=== PATIENT | female | born 1940 | race Caucasian/White ===

== ENCOUNTER 2019-02-12 13:51 | Inpatient (IN) | payer OTHER, MEDICARE ==
--- NOTE | 2019-02-12 13:58 | PDOC ---
History of Present Illness - General Chief Complaint: Shortness of Breath Stated Complaint: sob Time Seen by Provider: 02/12/19 13:56 - History of Present Illness Initial Comments: 02/12/19 14:50 The patient is a 78 year old female with a history of COPD on 3L nc, CVA, HTN who presents for evaluation of shortness of breath. The patient is accompanied by her who assists in providing the history. They note a 3 week history of progressively worsening shortness of breath that has been managed on an outpatient basis by the patient's primary care provider Dr. Grider. The patient was being seen by Dr. Grider today and noted to be hypoxic and was referred to the ED for admission for COPD exacerbation. The patient reports a non-productive cough throughout this time period in addition to her shortness of breath. They otherwise deny fevers, chills, chest pain, nausea, vomiting, abdominal pain, or changes with urination or bowel movements. Past History - Past Medical History Allergies/Adverse Reactions: Allergies Allergy/AdvReac Type Severity Reaction Status Date / Time No Known Allergies Allergy Verified 02/12/19 13:52 Home Medications: Ambulatory Orders Albuterol 0.083% Nebulizer Nan [Ventolin 0.083% Nebulizer Soln -] 1 amp NEB Q4H PRN #0 amp 12/28/15 Aspirin Coated [Ecotrin -] 81 mg PO DAILY #0 tablet.ec 12/28/15 Dorzolamide HCl [Trusopt 2% -] 1 drop OU BID #0 drops 12/28/15 Latanoprost 0.005% Eye Drops [Xalatan 0.005% Eye Drops -] 1 drop OU HS #0 drops 12/28/15 Atorvastatin Ca [Lipitor] 80 mg PO HS 02/12/19 Jamir/D3/Mag11/Zinc/Transport Truck Driver/Fortino/Bor [Caltrate 600+D Plus Tablet] 1 each PO DAILY Furosemide [Lasix] 40 mg PO BID 02/12/19 L.acidoph,Paracasei, B.lactis [Probiotic] 1 each PO DAILY 02/12/19 Magnesium 250 mg PO DAILY 02/12/19 Potassium Chloride 20 meq PO DAILY 02/12/19 Anemia: No Asthma: No Cancer: No Cardiac Disorders: No CVA: Yes COPD: Yes (3l nc) CHF: No Dementia: Yes Diabetes: No GI Disorders: No Disorders: No HTN: Yes Hypercholesterolemia: No Liver Disease: No Seizures: No Thyroid Disease: No - Suicide/Smoking/Psychosocial Hx Smoking History: Former smoker Have you smoked in the past 12 months: No Number of Cigarettes Smoked Daily: 30 Information on smoking cessation initiated: Yes 'Breaking Loose' booklet given: 12/21/15 Hx Alcohol Use: No Drug/Substance Use Hx: No Substance Use Type: None Review of Systems - Review of Systems Comments:: 02/12/19 14:53 Constitutional: No fevers, chills, fatigue, malaise HEENT: No Rhinorrhea, nasal congestion, visual changes Cardiovascular: No chest pain, syncope, palpitations, lightheadedness Respiratory: Cough, SOB. No Hemoptysis, Gastrointestinal: No Abdominal pain, Nausea, Vomiting, Constipation, Diarrhea, Melena Genitourinary: No Dysuria, Frequency, Urgency, Hesitancy, Hematuria, Flank pain Musculoskeletal: No Myalgia, arthralgia Skin: No rashes, itching, bruising, pallor Neurologic: No Headache, Dizziness, Numbness, Weakness, or Tingling Psychiatric: No Hallucinations. No SI or HI *Physical Exam - Vital Signs Last Vital Signs Temp Pulse Resp BP Pulse Ox 0/0 L 02/12/19 13:51 - Physical Exam Comments: 02/12/19 14:53 General Appearance: Nourished. No Apparent Distress HEENT: No Pharyngeal Erythema, Tonsillar Exudate, Tonsillar Erythema Neck: No Cervical Lymphadenopathy Respiratory/Chest: Rales noted at the lung bases with scant wheezing and poor air movement. No Crackles, Rhonchi, Cardiovascular: Regular Rhythm, Regular Rate. No Murmur, Gallops, Rubs Gastrointestinal/Abdominal: Normal Bowel Sounds, Soft. No Guarding, Rebound, Tenderness Musculoskeletal: No CVA Tenderness Extremity: Normal Capillary Refill Integumentary: Normal Color, Dry, Warm Neurologic: Fully Oriented, Alert, Normal Mood/Affect, Normal Response, ED Treatment Course - LABORATORY CBC & Chemistry Diagram: 02/12/19 14:21 02/12/19 14:21 Medical Decision Making - Medical Decision Making 02/12/19 15:04 The patient is a 78 year old female with a history of COPD on 3L nc, CVA, HTN who presents for evaluation of shortness of breath. Differential includes but is not limited to: COPD exacerbation, Pneumonia, ACS, CHF, Infectious, Metabolic Derangement. Given the patient's history and physical exam, we will obtain a cbc, cmp, troponin, bnp, chest plain film, blood cultures, ekg to evaluate further. We will treat with duonebs, solumedrol, ceftriaxone, and azithromycin. We will continue to monitor and reassess while here in the ED. The patient will likely require admission for further monitoring and management. 02/12/19 18:44 CBC is unremarkable. CMP is unremarkable. Troponin is elevated to 0.09. BNP is elevated to 5000s. Chest plain film demonstrates a possible right lower lobe infiltrate as read by our radiologist. The patient will require admission for further management. We discussed the case with the admitting team who accepted the patient for admission. *DC/Admit/Observation/Transfer Diagnosis at time of Disposition: COPD exacerbation - Discharge Dispostion Condition at time of disposition: Stable Decision to Admit order: Yes - Referrals - Patient Instructions - Post Discharge Activity
[2019-02-12] MEDS ORDERED: AZITHROMYCIN IVPB 500 MG in DEXTROSE 5%-WATER - 250 ML IVPB ONE (14:19)
[2019-02-12] MEDS ORDERED: CEFTRIAXONE 1 GM in DEXTROSE 5%-WATER - 100 ML IVPB ONE (14:19)
[2019-02-12] MEDS ORDERED: ALBUTEROL SO4 2.5/IPRATROPIUM 0.5 INH SOL 3 ML VIAL.NEB. NEB ONE ×6 (14:19→15:24)
[2019-02-12] MEDS ORDERED: methylPREDNISolone NA SUCC 125 MG/2 ML VIAL IVPUSH ONE (14:19)
[2019-02-12] MEDS ORDERED: methylPREDNISolone NA SUCC 125 MG/2 ML VIAL ONE (14:23)
[2019-02-12] MEDS ORDERED: cefTRIAXone SODIUM 1 GM VIAL ONE (14:29)
[2019-02-12] MEDS ORDERED: AZITHROMYCIN 500 MG VIAL IVPB ONE (14:29)
[2019-02-12 14:38] LABS: HEMOGLOBIN 15.8 GM/dl (10.7-15.3); LYMPH % 24.1 % (8-40); MCH 32.3 pg (25.7-33.7)
[2019-02-12 14:42] LABS: BASO % 0.2 % (0-2.0); EOS % 1.3 % (0-4.5); HEMATOCRIT 48.6 % (32.4-45.2); MCHC 32.5 g/dl (32.0-36.0); MEAN CELL VOLUME 99.5 fl (80-96); MEAN PLT VOLUME 8.2 fl (7.5-11.1); MONO % 5.4 % (3.8-10.2); PLATELET COUNT 244 K/MM3 (134-434); RBC 4.88 M/mm3 (3.60-5.2); RDW 13.8 % (11.6-15.6); WHITE BLOOD COUNT 8.3 K/mm3 (4.0-10.8)
[2019-02-12 14:49] LABS: ALBUMIN 3.4 g/dl (3.4-5.0); BILIRUBIN,TOTAL 0.9 mg/dl (0.2-1); CALCIUM 9.4 mg/dl (8.5-10); CREATININE 1.2 mg/dl (0.55-1.3); POTASSIUM 4.5 mmol/L (3.5-5.1); TOT PROT 6.8 g/dl (6.4-8.2)
--- NOTE | 2019-02-12 15:42 | EKG ---
Test Reason : Blood Pressure : / mmHG Vent. Rate : 098 BPM Atrial Rate : 098 BPM P-R Int : 152 ms QRS Dur : 086 ms QT Int : 362 ms P-R-T Axes : 062 103 068 degrees QTc Int : 462 ms NORMAL SINUS RHYTHM POSSIBLE RIGHT VENTRICULAR HYPERTROPHY POSSIBLE INFERIOR INFARCT , AGE UNDETERMINED ABNORMAL ECG NO PREVIOUS ECGS AVAILABLE Confirmed by SKYLA ALEGRIA MD ([id number]) on 02/12/2019 3:42:18 PM Referred By: BISI LOYOLA Confirmed By:SKYLA ALEGRIA MD
[2019-02-12] MEDS ORDERED: SODIUM CHLORIDE 500 ML IV STA (16:02)
--- NOTE | 2019-02-12 16:23 | PDOC ---
Attending Attestation - Resident Resident Name: Len Santos - ED Attending Attestation I have performed the following: I have examined & evaluated the patient, The case was reviewed & discussed with the resident, I agree w/resident's findings & plan, Exceptions are as noted - HPI HPI: 02/12/19 16:18 78-year-old female with severe COPD, nebulizer and home oxygen dependent, with increased shortness of breath and cough. Sent for evaluation by PMD. O2 saturation is baseline is in the high 80s. No fever/chills, productive cough, or chest pain - Physicial Exam PE: 02/12/19 16:20 Oriented 3, alert, mild respiratory distress Afebrile. Oxygen saturation in the low 80s, improving to high 80s with oxygen administration. Decreased breath sounds, hyperresonance bilaterally. Wheezing at the bases. Mildly tachycardic, systolic ejection murmur, no JVD or edema Chest x-ray with cardiomegaly and increased markings at the bases, no discrete infiltrate. EKG is unchanged 02/12/19 16:23 - Medical Decision Making 02/12/19 16:23 Assessment is acute exacerbation of COPD Plan: Oxygen, steroids, nebulizers, antibiotics, and observation. Admit to hospitalist as noted.
[2019-02-12 16:24] LABS: N-TERMINAL BNP 5016.4 pg/ml (5-450)
--- NOTE | 2019-02-12 16:44 | HP ---
CHIEF COMPLAINT: Shortness of breath PCP: Dr. Grider Cardiology: Dr. Noel HISTORY OF PRESENT ILLNESS: 78 year-old female with a PMH significant for diastolic heart failure, carotid artery disease s/p endarterectomy, peripheral arterial disease s/p fem pop bypass, and COPD. ER course was notable for: (1) SpO2 83% on 3L NC (2) CXR: central congestive changes (3) Troponin 0.09 (4) UA >100 WBCs (5) Solumedrol 125 x 1; azithro x 1; ceftriaxone x 1; mag x 1; duoneb x 3 Recent Travel: No PAST MEDICAL HISTORY: Diastolic heart failure Carotid artery disease Peripheral arterial disease COPD PAST SURGICAL HISTORY: Carotid endarterectomy 2009 [facility] Fem-pop bypass Social History: Smoking: quit 4 years ago, smoked >50 years Alcohol: social Drugs: no Family History: Allergies No Known Allergies Allergy (Verified 02/12/19 13:52) HOME MEDICATIONS: Home Medications Medication Instructions Recorded Albuterol 0.083% Nebulizer Nan 1 amp NEB Q4H PRN #0 amp 12/28/15 [Ventolin 0.083% Nebulizer Soln -] Aspirin Coated [Ecotrin -] 81 mg PO DAILY #0 tablet.ec 12/28/15 Dorzolamide HCl [Trusopt 2% -] 1 drop OU BID #0 drops 12/28/15 Latanoprost 0.005% Eye Drops 1 drop OU HS #0 drops 12/28/15 [Xalatan 0.005% Eye Drops -] Atorvastatin Ca [Lipitor] 80 mg PO HS 02/12/19 Jamir/D3/Mag11/Zinc/Poolroom Table Attendant/Fortino/Bor 1 each PO DAILY 02/12/19 [Caltrate 600+D Plus Tablet] Furosemide [Lasix] 40 mg PO BID 02/12/19 L.acidoph,Paracasei, B.lactis 1 each PO DAILY 02/12/19 [Probiotic] Magnesium 250 mg PO DAILY 02/12/19 Potassium Chloride 20 meq PO DAILY 02/12/19 REVIEW OF SYSTEMS CONSTITUTIONAL: Absent: fever, chills, diaphoresis, generalized weakness, malaise, loss of appetite, weight change HEENT: Absent: rhinorrhea, nasal congestion, throat pain, throat swelling, difficulty swallowing, mouth swelling, ear pain, eye pain, visual changes CARDIOVASCULAR: Absent: chest pain, syncope, palpitations, irregular heart rate, lightheadedness , peripheral edema RESPIRATORY: +SOB, cough, COSTELLO Absent: orthopnea, wheezing, stridor, hemoptysis GASTROINTESTINAL: Absent: abdominal pain, abdominal distension, nausea, vomiting, diarrhea, constipation, melena, hematochezia GENITOURINARY: Absent: dysuria, frequency, urgency, hesitancy, hematuria, flank pain, genital pain MUSCULOSKELETAL: Absent: myalgia, arthralgia, joint swelling, back pain, neck pain SKIN: Absent: rash, itching, pallor HEMATOLOGIC/IMMUNOLOGIC: Absent: easy bleeding, easy bruising, lymphadenopathy, frequent infections ENDOCRINE: Absent: unexplained weight gain, unexplained weight loss, heat intolerance, cold intolerance NEUROLOGIC: Absent: headache, focal weakness or paresthesias, dizziness, unsteady gait, seizure, mental status changes, bladder or bowel incontinence PSYCHIATRIC: Absent: anxiety, depression, suicidal or homicidal ideation, hallucinations. PHYSICAL EXAMINATION Vital Signs - 24 hr 02/12/19 02/12/19 02/12/19 13:51 15:57 16:31 Temperature 97.9 F Pulse Rate 104 H Pulse Rate [ 100 H 97 H Apical] Respiratory 24 H 25 H 24 H Rate Blood Pressure 108/83 Blood Pressure 85/59 L 92/68 [Left Arm] O2 Sat by Pulse 83 L 84 L 85 L Oximetry (%) GENERAL: Awake, alert, and fully oriented, in no acute distress. HEAD: Normal with no signs of trauma. EYES: Pupils equal, round and reactive to light, extraocular movements intact, sclera anicteric, conjunctiva clear. No lid lag. EARS, NOSE, THROAT: Ears normal, nares patent, oropharynx clear without exudates. Moist mucous membranes. LUNGS: Bilateral rales 1/[address] up; on venti mask; able to speak in complete sentences, no accessory muscle use HEART: Regular rate and rhythm, S1 and S2 ABDOMEN: Soft, nontender, not distended UPPER EXTREMITIES: 2+ pulses, warm, well-perfused. No cyanosis. No clubbing. No peripheral edema. LOWER EXTREMITIES: 2+ pulses, warm, well-perfused. No calf tenderness. No peripheral edema, no calf tenderness. NEUROLOGICAL: Cranial nerves II-XII intact. Laboratory Results - last 24 hr 02/12/19 02/12/19 02/12/19 14:21 14:21 14:21 WBC 8.3 RBC 4.88 Hgb 15.8 H Hct 48.6 H MCV 99.5 H MCH 32.3 MCHC 32.5 RDW 13.8 Plt Count 244 MPV 8.2 Absolute Neuts (auto) 5.8 Neutrophils % 69.0 Lymphocytes % 24.1 Monocytes % 5.4 Eosinophils % 1.3 Basophils % 0.2 Sodium 138 Potassium 4.5 Chloride 103 Carbon Dioxide 27 Anion Gap 8 BUN 21.0 H Creatinine 1.2 Est GFR (CKD-EPI)AfAm 50.84 Est GFR (CKD-EPI)NonAf 43.86 Random Glucose 107 H Calcium 9.4 Total Bilirubin 0.9 AST 41 H ALT 30 Alkaline Phosphatase 77 Creatine Kinase Troponin I 0.09 H B-Natriuretic Peptide 5016.4 H Total Protein 6.8 Albumin 3.4 02/12/19 14:21 WBC RBC Hgb Hct MCV MCH MCHC RDW Plt Count MPV Absolute Neuts (auto) Neutrophils % Lymphocytes % Monocytes % Eosinophils % Basophils % Sodium Potassium Chloride Carbon Dioxide Anion Gap BUN Creatinine Est GFR (CKD-EPI)AfAm Est GFR (CKD-EPI)NonAf Random Glucose Calcium Total Bilirubin AST ALT Alkaline Phosphatase Creatine Kinase 34 Troponin I B-Natriuretic Peptide Total Protein Albumin ASSESSMENT/PLAN 78 year-old female with a PMH significant for diastolic heart failure, carotid artery disease s/p endarterectomy, peripheral arterial disease s/p fem pop bypass, and COPD. Admitted for hypoxic respiratory failure. Acute on chronic hypoxic respiratory failure secondary to diastolic HF exacerbation and COPD exacerbation --at home patient is on 3L continuous O2 and baseline SpO2 is high 80s; prior to coming to ED sats were in high 70s --now on venti mask 40% @ SpO2 88%; titrate FiO2 85-89% Acute on chronic diastolic heart failure --11/2015 Echo: mild cLVH; Grade I diastolic dysfunction; RV normal; trace to mild MR; mild TR; mild pHTN; mild to mod AI; mild PI --bilateral rales on exam, CXR shows congestive changes, BNP>5,000 --troponin 0.09-->0.08; third pending --ECG: no acute ischemic changes, Q waves --Lasix IVP 40mg daily --telemetry monitoring --cardiology consult COPD exacerbation --albuterol nebs PRN --continue Spiriva, Symbicort --solumedrol 40mg q8h --started on ceftriaxone and azithro, but prolonged QTc and already on Lexapro; d/c azithro; awaiting CT chest results, if signs of PNA will add doxy to cover atypicals UTI --symptomatic, urgency, dysuria --UA >100WBCs --ceftriaxone FEN Fluids: PO intake adequate Electrolytes: replete as indicated Nutrition: low sodium DVT prophylaxis: subq heparin Physical therapy Dispo: continues to require inpatient care. Full code. Visit type - Emergency Visit Emergency Visit: Yes ED Registration Date: 02/12/19 Care time: The patient presented to the Emergency Department on the above date and was hospitalized for further evaluation of their emergent condition. - New Patient This patient is new to me today: Yes Date on this admission: 02/13/19 - Critical Care Critical Care patient: No
[2019-02-12 18:35] VITALS: BMI 25.3
[2019-02-12] MEDS ORDERED: FUROSEMIDE 40 MG/4 ML INJECTABLE VIAL IVPUSH ONE (19:38)
[2019-02-12] MEDS ORDERED: ALBUTEROL SO4 0.083% IH SOL 2.5 MG/3 ML VIAL.NEB. NEB PRN (19:44)
[2019-02-12] MEDS ORDERED: ASPIRIN COATED 81 MG TABLET.EC PO ONE (19:51)
[2019-02-12] MEDS ORDERED: ATORVASTATIN CA 80 MG TABLET (FP) PO ONE (19:52)
[2019-02-12] MEDS: LATANOPROST 0.005% OPHTH SOLN 2.5ML BOTTLE OU SCH (23:46)
[2019-02-12] MEDS: DORZOLAMIDE 2% HCL OPHTHALMIC SOLUTION 10 ML BOTTLE OU SCH (23:47)
[2019-02-12] MEDS: BUDESONIDE/FORMETEROL FUMARATE 160/4.5 mcg INHALER IH SCH (23:48)
[2019-02-12] MEDS: HEPARIN NA (PORCINE) 5,000 UNITS/ML 1ML VIAL SQ SCH (23:49)
[2019-02-13] MEDS: HEPARIN NA (PORCINE) 5,000 UNITS/ML 1ML VIAL SQ SCH ×3 (06:08→22:13)
[2019-02-13 07:22] LABS: ALBUMIN 2.5 g/dl (3.4-5.0); BILIRUBIN,TOTAL 0.7 mg/dl (0.2-1); CALCIUM 7.7 mg/dl (8.5-10); CREATININE 1.1 mg/dl (0.55-1.3); MAGNESIUM 1.7 mg/dL (1.8-2.4); POTASSIUM 3.7 mmol/L (3.5-5.1); TOT PROT 5.2 g/dl (6.4-8.2)
[2019-02-13 07:27] LABS: EOS % 0.1 % (0-4.5); HEMATOCRIT 45.1 % (32.4-45.2); HEMOGLOBIN 14.7 GM/dl (10.7-15.3); LYMPH % 16.2 % (8-40); MCH 32.5 pg (25.7-33.7); MCHC 32.6 g/dl (32.0-36.0); MEAN CELL VOLUME 99.8 fl (80-96); MEAN PLT VOLUME 8.7 fl (7.5-11.1); MONO % 3.1 % (3.8-10.2); NEUT % 80.6 % (42.8-82.8); PLATELET COUNT 223 K/MM3 (134-434); RBC 4.52 M/mm3 (3.60-5.2)
[2019-02-13 07:36] LABS: ACTIVATED PTT 33.4 SECONDS (25.2-36.5)
[2019-02-13 07:40] LABS: INR 1.16 (0.82-1.09); PROTHROMBIN TIME (PATIENT) 12.9 SEC (10.2-13.0)
[2019-02-13] MEDS ORDERED: MAGNESIUM SULF 50% (8.12 MEQ/2 ML-1 GM VIAL) IVPB ONE (08:10)
[2019-02-13] MEDS ORDERED: MAGNESIUM SULFATE IN WATER 2 GM/50 ML IVPB IVPB ONE (09:00)
[2019-02-13] MEDS: ASPIRIN COATED 81 MG TABLET.EC PO SCH (09:41)
[2019-02-13] MEDS: ESCITALOPRAM OXALATE 10 MG TABLET (FP) PO SCH (09:41)
[2019-02-13] MEDS: FUROSEMIDE 40 MG/4 ML INJECTABLE VIAL IVPUSH SCH (09:41)
[2019-02-13] MEDS: NIFEdipine E.R 60 MG TABLET (UD) PO SCH ×2 (09:41→10:54)
[2019-02-13] MEDS: CEFTRIAXONE 1 G/50 ML PREMIX 50 ML IVPB SCH (09:42)
[2019-02-13] MEDS: BUDESONIDE/FORMETEROL FUMARATE 160/4.5 mcg INHALER IH SCH ×2 (09:48→22:00)
[2019-02-13] MEDS: DORZOLAMIDE 2% HCL OPHTHALMIC SOLUTION 10 ML BOTTLE OU SCH ×2 (09:48→22:01)
[2019-02-13] MEDS: TIOTROPIUM BROMIDE 2.5 MCG (SPIRIVA) RESPIMAT INHALER IH SCH (09:50)
[2019-02-13] MEDS ORDERED: PATIENT'S OWN MEDICATION (NON-FORMULARY) (Tiotropium Bromide [Spiriva] 18 MCG) IH SCH (10:00)
--- NOTE | 2019-02-13 10:19 | PN ---
Progress Note (short form) - Note Progress Note: PULMONARY CONSULTATION DICTATED 02/13/19 IMP ACUTE ON CHRONIC HYPOXEMIC RESPIRATORY FAILURE ADVANCED COPD WITH ACUTE EXACERBATION CHF HTN H/O CVA + TROPONIN PLAN IV STEROIDS INHALED BRONCHODILATORS ABX LASIX ECHO ZITHROMAX 25Omg PO TIW O2 TO MAINTAIN O2 SAT 90% 0R GREATER TREND TROPONIN CHEST CT DR CHATTERJEE Problem List - Problems (1) CHF (congestive heart failure) Code(s): I50.9 - HEART FAILURE, UNSPECIFIED (2) COPD exacerbation Code(s): J44.1 - CHRONIC OBSTRUCTIVE PULMONARY DISEASE W (ACUTE) EXACERBATION (3) Acute on chronic respiratory failure with hypoxemia Code(s): J96.21 - ACUTE AND CHRONIC RESPIRATORY FAILURE WITH HYPOXIA (4) Hypertension Code(s): I10 - ESSENTIAL (PRIMARY) HYPERTENSION Qualifiers: Hypertension type: essential hypertension (5) Shortness of breath Code(s): R06.02 - SHORTNESS OF BREATH (6) Troponin I above reference range Code(s): R74.8 - ABNORMAL LEVELS OF OTHER SERUM ENZYMES (7) Hypoxemia requiring supplemental oxygen Code(s): R09.02 - HYPOXEMIA; Z99.81 - DEPENDENCE ON SUPPLEMENTAL OXYGEN
--- NOTE | 2019-02-13 11:17 | CONS ---
DATE OF CONSULTATION: 02/13/2019 REFERRING PROVIDER: Olivia Anand NP The patient is a 78-year-old white female with a past medical history of advanced COPD, O2 dependent; history of CVA; hypertension; longstanding history of tobacco use, quit 3 years ago; admitted to [facility] with complaint of 3-week history of increasing shortness of breath and dyspnea on exertion. Patient has history of advanced COPD on home O2. For the past week, she said she started noting increasing shortness of breath and dyspnea on exertion. Denied any complaints of chest pain, palpitations. Has a cough which is nonproductive. Denied any fevers, chills, weight loss, or night sweats. Denies hemoptysis. She went to see Dr. Mccormick on the day of admission and was noted to have increasing hypoxia on O2. At which time, she was referred for admission. Patient denies any recent travel. 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 There is no history of occupational exposure to chemicals or fumes. She has a longstanding history of tobacco use, greater than 1 pack per day for many years, quit 3 years ago. There is no history of respiratory failure in the past requiring ventilatory support. PAST MEDICAL HISTORY: Again includes advanced COPD with chronic hypoxemic respiratory failure on 3 L nasal cannula, history of CVA, and hypertension. REVIEW OF SYSTEMS: Positive for cough. Positive shortness of breath. Positive dyspnea on exertion. Positive wheezing. No chest pain. No palpitations. No nausea. No vomiting. No hemoptysis. No abdominal pain. CURRENT MEDICATIONS: Include Symbicort 160/4.5, heparin, Lexapro, Spiriva, albuterol, Trusopt, ceftriaxone, Procardia, Lipitor, Lasix, Ecotrin, Latanoprost, and Xalatan. PHYSICAL EXAMINATION: General: The patient is an elderly white female, thin, awake, alert, in no acute distress. Vital Signs: She is afebrile. Blood pressure is 105/74. Respiratory rate is 18. O2 saturation is 88% on 2 L nasal cannula. HEENT: Normocephalic, atraumatic. Neck: Supple. Heart: Regular. S1, S2. Chest: Scattered bilateral wheezes. A few bibasilar crackles. Abdomen: Soft. Bowel sounds are positive. Extremities: No cyanosis or edema. LABORATORY DATA: WBC is 10, hemoglobin 14.7, hematocrit 45.1 with a platelet count of 223,000. BUN is 20, creatinine 1.1. Troponin 0.06. BNP is 5016. Chest x-ray: Cardiomegaly, congestion, some atelectasis and infiltrate at the right base, prominent right hilum. IMPRESSION: [id number] hypoxemic respiratory failure secondary to multiple factors: 1. Advanced chronic obstructive pulmonary disease with acute exacerbation. 2. Likely congestive heart failure. 3. Positive troponin. 4. Hypertension. 5. History of cerebrovascular accident. PLAN: IV steroids, inhaled bronchodilators, antibiotic therapy, Lasix, echo. Zithromax 250 mg t.i.w., anti-inflammatories, supplemental O2 to maintain saturations 90% or greater, trend troponin, and obtain chest CT. NANCY CHATTERJEE M.D. SALLY/[id number]
[2019-02-13] MEDS: methylPREDNISolone NA SUCC 40 MG/1 ML VIAL IVPUSH SCH ×2 (11:41→18:19)
[2019-02-13] MEDS: ACETAMINOPHEN 325 MG TABLET (FP) PO PRN (12:13)
--- NOTE | 2019-02-13 12:34 | PN ---
Physical Exam: SUBJECTIVE: Patient seen and examined sitting on edge of bed. Feels "lousy". Dysuria is better since banegas placed. Breathing is not improved. Refusing to go to CT scan, "too tired." OBJECTIVE: Vital Signs Period Temp Pulse Resp BP Sys/Frost Pulse Ox Last 24 Hr 97.4 F-98.5 F 95-107 18-25 85-146/47-83 83-91 GENERAL: The patient is awake, alert, and fully oriented, in no acute distress. Irritable. LUNGS: Bibasilar rales HEART: Regular rate and rhythm, S1, S2 ABDOMEN: Soft, nontender, nondistended EXTREMITIES: 2+ pulses, warm, well-perfused, no edema, no calf tenderness NEUROLOGICAL: Cranial nerves II through XII grossly intact. Normal speech, gait not observed. Laboratory Results - last 24 hr 02/12/19 02/12/19 02/12/19 14:21 14:21 14:21 WBC 8.3 RBC 4.88 Hgb 15.8 H Hct 48.6 H MCV 99.5 H MCH 32.3 MCHC 32.5 RDW 13.8 Plt Count 244 MPV 8.2 Absolute Neuts (auto) 5.8 Neutrophils % 69.0 Lymphocytes % 24.1 Monocytes % 5.4 Eosinophils % 1.3 Basophils % 0.2 PT with INR INR PTT (Actin FS) Sodium 138 Potassium 4.5 Chloride 103 Carbon Dioxide 27 Anion Gap 8 BUN 21.0 H Creatinine 1.2 Est GFR (CKD-EPI)AfAm 50.84 Est GFR (CKD-EPI)NonAf 43.86 Random Glucose 107 H Calcium 9.4 Magnesium Total Bilirubin 0.9 AST 41 H ALT 30 Alkaline Phosphatase 77 Creatine Kinase Troponin I 0.09 H B-Natriuretic Peptide 5016.4 H Total Protein 6.8 Albumin 3.4 TSH Urine Color Urine Appearance Urine pH Urine Protein Urine Glucose (UA) Urine Ketones Urine Blood Urine Nitrite Urine Bilirubin Urine Urobilinogen Ur Leukocyte Esterase Urine RBC Urine WBC Urine Bacteria 02/12/19 02/12/19 02/12/19 14:21 20:09 20:35 WBC RBC Hgb Hct MCV MCH MCHC RDW Plt Count MPV Absolute Neuts (auto) Neutrophils % Lymphocytes % Monocytes % Eosinophils % Basophils % PT with INR INR PTT (Actin FS) Sodium Potassium Chloride Carbon Dioxide Anion Gap BUN Creatinine Est GFR (CKD-EPI)AfAm Est GFR (CKD-EPI)NonAf Random Glucose Calcium Magnesium Total Bilirubin AST ALT Alkaline Phosphatase Creatine Kinase 34 Troponin I 0.08 H B-Natriuretic Peptide Total Protein Albumin TSH Urine Color Yellow Urine Appearance Cloudy Urine pH 6.0 Urine Protein 2+ H Urine Glucose (UA) Negative Urine Ketones Trace Urine Blood 1+ H Urine Nitrite Positive H Urine Bilirubin Negative Urine Urobilinogen 0.2 Ur Leukocyte Esterase 2+ Urine RBC 5-10 Urine WBC >100 Urine Bacteria Many 02/12/19 02/13/19 02/13/19 22:55 06:00 06:00 WBC RBC Hgb Hct MCV MCH MCHC RDW Plt Count MPV Absolute Neuts (auto) Neutrophils % Lymphocytes % Monocytes % Eosinophils % Basophils % PT with INR INR PTT (Actin FS) Sodium 141 Potassium 3.7 Chloride 109 H Carbon Dioxide 24 Anion Gap 8 BUN 20.0 H Creatinine 1.1 Est GFR (CKD-EPI)AfAm 56.48 Est GFR (CKD-EPI)NonAf 48.73 Random Glucose 104 Calcium 7.7 L Magnesium 1.7 L Total Bilirubin 0.7 AST 28 ALT 23 Alkaline Phosphatase 61 D Creatine Kinase Troponin I 0.06 H B-Natriuretic Peptide Total Protein 5.2 L Albumin 2.5 L TSH 0.67 Urine Color Cancelled Urine Appearance Cancelled Urine pH Cancelled Urine Protein Cancelled Urine Glucose (UA) Cancelled Urine Ketones Cancelled Urine Blood Cancelled Urine Nitrite Cancelled Urine Bilirubin Cancelled Urine Urobilinogen Cancelled Ur Leukocyte Esterase Cancelled Urine RBC Urine WBC Urine Bacteria 02/13/19 02/13/19 07:13 07:13 WBC 10.0 RBC 4.52 Hgb 14.7 Hct 45.1 MCV 99.8 H MCH 32.5 MCHC 32.6 RDW 14.0 Plt Count 223 MPV 8.7 Absolute Neuts (auto) 8.1 Neutrophils % 80.6 Lymphocytes % 16.2 Monocytes % 3.1 L Eosinophils % 0.1 Basophils % 0.0 PT with INR 12.9 INR 1.16 PTT (Actin FS) 33.4 Sodium Potassium Chloride Carbon Dioxide Anion Gap BUN Creatinine Est GFR (CKD-EPI)AfAm Est GFR (CKD-EPI)NonAf Random Glucose Calcium Magnesium Total Bilirubin AST ALT Alkaline Phosphatase Creatine Kinase Troponin I B-Natriuretic Peptide Total Protein Albumin TSH Urine Color Urine Appearance Urine pH Urine Protein Urine Glucose (UA) Urine Ketones Urine Blood Urine Nitrite Urine Bilirubin Urine Urobilinogen Ur Leukocyte Esterase Urine RBC Urine WBC Urine Bacteria Active Medications Generic Name Dose Route Start Last Admin Trade Name Roselia PRN Reason Stop Dose Admin Acetaminophen 650 mg 02/13/19 12:00 02/13/19 12:13 Tylenol - PO 650 mg Q6H PRN Administration PAIN LEVEL 1-5 Albuterol Sulfate 1 amp 02/12/19 19:44 Ventolin 0.083% Nebulizer Soln - NEB Q4H PRN SHORT OF BREATH/WHEEZING Aspirin 81 mg 02/13/19 10:00 02/13/19 09:41 Ecotrin - PO 81 mg DAILY [facility]ARA Administration Atorvastatin Calcium 80 mg 02/13/19 22:00 Lipitor - PO HS SARA Budesonide/Formoterol Fumarate 2 puff 02/12/19 22:00 02/13/19 09:48 Symbicort 160/4.5mcg - IH 2 puff BID [facility]ARA Administration Dorzolamide HCl 1 drop 02/12/19 22:00 02/13/19 09:48 Trusopt 2% OU 1 drop BID [facility] Administration Escitalopram Oxalate 10 mg 02/13/19 10:00 02/13/19 09:41 Lexapro - PO 10 mg DAILY [facility] Administration Furosemide 40 mg 02/13/19 10:00 02/13/19 09:41 Lasix Injection - IVPUSH 40 mg DAILY [facility] Administration Heparin Sodium (Porcine) 5,000 unit 02/12/19 22:00 02/13/19 06:08 Heparin - SQ 5,000 unit TID [facility] Administration Ceftriaxone Sodium 50 mls @ 100 mls/hr 02/13/19 10:00 02/13/19 09:42 Ceftriaxone 1 Gm-D5w Bag IVPB 100 mls/hr DAILY [facility] Administration Protocol Latanoprost 1 drop 02/12/19 22:00 02/12/19 23:46 Xalatan 0.005% Eye Drops - OU 1 drop HS [facility] Administration Methylprednisolone Sodium Succinate 40 mg 02/13/19 10:45 02/13/19 11:41 Solu-Medrol - IVPUSH 40 mg Q8H-IV [facility] Administration Nifedipine 60 mg 02/13/19 10:00 02/13/19 10:54 Procardia Xl - PO Not Given DAILY [facility] Tiotropium Mozelle 2 puff 02/13/19 10:00 02/13/19 09:50 Spiriva Respimat IH 2 puff DAILY [facility] Administration ASSESSMENT/PLAN: 78 year-old female with a PMH significant for TIA, diastolic heart failure, carotid artery disease s/p endarterectomy, peripheral arterial disease s/p fem pop bypass, and COPD. Admitted for hypoxic respiratory failure. Acute on chronic hypoxic respiratory failure secondary to diastolic HF exacerbation and COPD exacerbation --at home patient is on 3L continuous O2 and baseline SpO2 is high 80s; prior to coming to ED sats were in high 70s --titrate FiO2 85-89% Acute on chronic diastolic heart failure --11/2015 Echo: mild cLVH; Grade I diastolic dysfunction; RV normal; trace to mild MR; mild TR; mild pHTN; mild to mod AI; mild PI --bilateral rales on exam, CXR shows congestive changes, BNP>5,000 --Lasix IVP 40mg daily --telemetry monitoring --echo done pending dictation --cardiology consult Elevated troponins --troponin 0.09-->0.08-->0.06; no signs of ACS; likely secondary to HF demand --ECG: no acute ischemic changes, Q waves Atherosclerotic disease --h/o TIA, carotid artery disease, and peripheral artery disease --on ASA and high-dose statin COPD exacerbation --albuterol nebs PRN --continue Spiriva, Symbicort --solumedrol 40mg q8h --CT chest pending --continue ceftriaxone; azithro contraindicated due to QTc; consider doxy pending CT results UTI --symptomatic, urgency, dysuria --UA >100WBCs --ceftriaxone (day #2) FEN Fluids: PO intake adequate Electrolytes: replete as indicated Nutrition: low sodium DVT prophylaxis: subq heparin Physical therapy Dispo: continues to require inpatient care. Full code. Visit type - Emergency Visit Emergency Visit: Yes ED Registration Date: 02/12/19 Care time: The patient presented to the Emergency Department on the above date and was hospitalized for further evaluation of their emergent condition. - New Patient This patient is new to me today: No - Critical Care Critical Care patient: No
--- NOTE | 2019-02-13 13:49 | CON.CARD ---
Consult Consult Specialty:: Cardiology Referred by:: Medicine Reason for Consultation:: CHF - History of Present Illness Chief Complaint: CHF History of Present Illness: 78F h/o diastolic HF, carotid artery stenosis s/p CEA, PAD s/p fem-pop bypass, COPD p/w dypsnea. In ER was hypoxic to 83% on 3L of NC, with congestion on CXR. Was given steroids, abx, nebs, IV lasix. Feels better. Sees Dr. Noel for cardio. 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) Cardio/Vascular: Yes: HTN, Hyperlipdemia, Murmur, Other (PAD/Carotid Stenosis) Pulmonary: Yes: COPD Musculoskeletal: Yes: Chronic low back pain, Osteoarthritis Endocrine: Yes: Other (Thyroid Nodule) - Past Surgical History Past Surgical History: Yes: Carotid Endarterectomy (Left), Cataract Removal ( Left), Stent (legs), Tubal Ligation - Alcohol/Substance Use Hx Alcohol Use: No History of Substance Use: reports: None - Smoking History Smoking history: Former smoker Have you smoked in the past 12 months: No Aproximately how many cigarettes per day: 30 If you are a former smoker, when did you quit?: 4 YEARS AGO - Social History ADL: Independent 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 History of Recent Travel: No Home Medications - Allergies Allergies/Adverse Reactions: Allergies Allergy/AdvReac Type Severity Reaction Status Date / Time No Known Allergies Allergy Verified 02/12/19 13:52 - Home Medications Home Medications: Ambulatory Orders Albuterol 0.083% Nebulizer Nan [Ventolin 0.083% Nebulizer Soln -] 1 amp NEB Q4H PRN #0 amp 12/28/15 Aspirin Coated [Ecotrin -] 81 mg PO DAILY #0 tablet.ec 12/28/15 Dorzolamide HCl [Trusopt 2% -] 1 drop OU BID #0 drops 12/28/15 Latanoprost 0.005% Eye Drops [Xalatan 0.005% Eye Drops -] 1 drop OU HS #0 drops 12/28/15 Atorvastatin Ca [Lipitor] 80 mg PO HS 02/12/19 Jamir/D3/Mag11/Zinc/R[employer] Secretary [employer]apper/Fortino/Bor [Caltrate 600+D Plus Tablet] 1 each PO DAILY Furosemide [Lasix] 40 mg PO BID 02/12/19 L.acidoph,Paracasei, B.lactis [Probiotic] 1 each PO DAILY 02/12/19 Magnesium 250 mg PO DAILY 02/12/19 Potassium Chloride 20 meq PO DAILY 02/12/19 Family Disease History - Family Disease History Family Disease History: Heart Disease: Father ( at 74 of [place]), [place]: Brother ( Renal Cell), Sister (2 Sisters of lung cancer), Other: Mother (HTN,Thyroid) Review of Systems - Review of Systems Constitutional: reports: No Symptoms Eyes: reports: No Symptoms HENT: reports: No Symptoms Neck: reports: No Symptoms Cardiovascular: reports: No Symptoms Respiratory: reports: No Symptoms Gastrointestinal: reports: No Symptoms Genitourinary: reports: No Symptoms Musculoskeletal: reports: No Symptoms Integumentary: reports: No Symptoms Neurological: reports: No Symptoms Endocrine: reports: No Symptoms Hematology/Lymphatic: reports: No Symptoms Psychiatric: reports: No Symptoms Vital Signs: Vital Signs Temperature 98.5 F 02/13/19 10:00 Pulse Rate 101 H 02/13/19 10:00 Respiratory Rate 18 02/13/19 10:00 Blood Pressure 105/74 02/13/19 10:00 O2 Sat by Pulse Oximetry (%) 88 L 02/13/19 10:00 Constitutional: Yes: Well Nourished, No Distress, Calm Eyes: Yes: Conjunctiva Clear, EOM Intact HENT: Yes: Atraumatic, Normocephalic Neck: Yes: Supple, Trachea Midline Respiratory: Yes: Regular, Rales (bases orlin, poor effort) Gastrointestinal: Yes: Normal Bowel Sounds, Soft JVD: Yes Carotid Bruit: No PMI: Non-Displaced Heart Sounds: Yes: S1, S2 Musculoskeletal: No: Back Pain Extremities: No: Cold Edema: Yes Edema: LLE: Trace, RLE: Trace Peripheral Pulses WNL: Yes Peripheral Pulses: 2+ Left Doralis Pedis, 2+ Right Dorsalis Pedis Integumentary: No: Jaundice Neurological: Yes: Alert, Oriented Psychiatric: No: Agitated - Other Data Labs, Other Data: CBC, BMP 02/13/19 07:13 02/13/19 06:00 INR, PTT INR 1.16 (0.82-1.09) 02/13/19 07:13 Troponin, BNP 02/12/19 02/12/19 02/12/19 14:21 14:21 20:09 Troponin I 0.09 H 0.08 H B-Natriuretic Peptide 5016.4 H 02/13/19 06:00 Troponin I 0.06 H B-Natriuretic Peptide Troponin, BNP 02/12/19 02/12/19 02/12/19 14:21 14:21 20:09 Troponin I 0.09 H 0.08 H B-Natriuretic Peptide 5016.4 H 02/13/19 06:00 Troponin I 0.06 H B-Natriuretic Peptide Assessment/Plan EKG: sinus, nl intervals, no ischemic changes tele: sinus, sinus tachycardia CXR: congestive changes 78 year-old female with a PMH significant for diastolic heart failure, carotid artery disease s/p endarterectomy, peripheral arterial disease s/p fem pop bypass, and COPD. Admitted for hypoxic respiratory failure. acute on chronic diastolic HF, shortness of breath - CT chest pending - pulm following, SOB likely also component of COPD - improving on IV lasix, continue - monitor daily weights, Cr, lytes - echo pending elevated trop - flat trend, indeterminate range, EKG no ischemic changes - unlikely ACS, more likely demand in setting of HF COPD exac - manage per pulm UTI - manage per primary, on abx PAD, carotid stenosis - cont aspirin, statin HTN - cont home meds
--- NOTE | 2019-02-13 15:14 | ECHO ---
Name: CHAPO, ASHLI M Exam:Adult Echocardiogram Study Date: 02/13/2019 11:07 AM Age: 78 yrs Reason For Study: PULMONARY HTN MMode/2D Measurements & Calculations IVSd: 1.2 cm Ao root diam: 3.3 cm LVIDd: 3.6 cm LA dimension: 2.5 cm LVIDs: 2.4 cm LVPWd: 1.2 cm EDV(Teich): 54.5 ml LVOT diam: 2.0 cm ESV(Teich): 19.9 ml Doppler Measurements & Calculations TR max bo: 416.8 cm/sec PI end-d bo: 192.4 cm/sec TR max P.2 mmHg Procedure A complete two-dimensional transthoracic echocardiogram was performed (2D, M-mode, Doppler and color flow Doppler). Left Ventricle The left ventricular size, thickness and function are normal. The left ventricular ejection fraction is normal. Ejection Fraction = 60-65%. The left ventricular wall motion is normal. Right Ventricle The right ventricle is moderately dilated. The right ventricular systolic function is normal. Atria Normal left and right atrial size and function. Mitral Valve There is trace mitral regurgitation. Tricuspid Valve There is mild to moderate tricuspid regurgitation. There is severe pulmonary hypertension. Aortic Valve The aortic valve is trileaflet. No hemodynamically significant valvular aortic stenosis. Trace aortic regurgitation. Pulmonic Valve Mild pulmonic valvular regurgitation. Great Vessels The aortic root is normal size. Pericardium/Pleura There is no pericardial effusion. Interpretation Summary The left ventricular size, thickness and function are normal The right ventricle is moderately dilated. The right ventricular systolic function is normal. There is trace mitral regurgitation. There is mild to moderate tricuspid regurgitation. There is severe pulmonary hypertension. Trace aortic regurgitation. Mild pulmonic valvular regurgitation. MD Andrew Figueroa 02/13/2019 03:14 PM
[2019-02-13] MEDS: DOXYCYCLINE HYCLATE 100 MG CAPSULE PO SCH (18:19)
[2019-02-13] MEDS ORDERED: PT OWN MED DRAWER 7, Y5N ONE (21:43)
[2019-02-13] MEDS: ATORVASTATIN CA 80 MG TABLET (FP) PO SCH (22:00)
[2019-02-13] MEDS: LATANOPROST 0.005% OPHTH SOLN 2.5ML BOTTLE OU SCH (22:02)
[2019-02-14] MEDS: ACETAMINOPHEN 325 MG TABLET (FP) PO PRN ×2 (00:43→17:47)
[2019-02-14] MEDS: methylPREDNISolone NA SUCC 40 MG/1 ML VIAL IVPUSH SCH ×3 (01:16→17:43)
[2019-02-14] MEDS: HEPARIN NA (PORCINE) 5,000 UNITS/ML 1ML VIAL SQ SCH ×3 (05:42→21:15)
[2019-02-14] MEDS ORDERED: PT OWN MED DRAWER 7, Y5N ONE (09:15)
--- NOTE | 2019-02-14 09:29 | PN ---
Progress Note, Physician History of Present Illness: PULMONARY ALERT,LESS DYSPNEIC,STILL HYPOXIC . CHEST CT -MASSES,-CONGESTION,-EFFUSIONS - Current Medication List Current Medications: Active Medications Acetaminophen (Tylenol -) 650 mg PO Q6H PRN PRN Reason: PAIN LEVEL 1-5 Last Admin: 02/14/19 00:43 Dose: 650 mg Albuterol Sulfate (Ventolin 0.083% Nebulizer Soln -) 1 amp NEB Q4H PRN PRN Reason: SHORT OF BREATH/WHEEZING Aspirin (Ecotrin -) 81 mg PO DAILY [facility] Last Admin: 02/13/19 09:41 Dose: 81 mg Atorvastatin Calcium (Lipitor -) 80 mg PO HS [facility] Last Admin: 02/13/19 22:00 Dose: 80 mg Budesonide/Formoterol Fumarate (Symbicort 160/4.5mcg -) 2 puff IH BID [facility] Last Admin: 02/13/19 22:00 Dose: 2 puff Dorzolamide HCl (Trusopt 2%) 1 drop OU BID@1000,1800 [facility] Doxycycline Hyclate (Vibramycin -) 100 mg PO BID@1000,1800 [facility] Last Admin: 02/13/19 18:19 Dose: 100 mg Escitalopram Oxalate (Lexapro -) 10 mg PO DAILY [facility] Last Admin: 02/13/19 09:41 Dose: 10 mg Furosemide (Lasix Injection -) 40 mg IVPUSH DAILY [facility] Last Admin: 02/13/19 09:41 Dose: 40 mg Heparin Sodium (Porcine) (Heparin -) 5,000 unit SQ TID [facility] Last Admin: 02/14/19 05:42 Dose: 5,000 unit Ceftriaxone Sodium (Ceftriaxone 1 Gm-D5w Bag) 50 mls @ 100 mls/hr IVPB DAILY [facility]; Protocol Last Admin: 02/13/19 09:42 Dose: 100 mls/hr Latanoprost (Xalatan 0.005% Eye Drops -) 1 drop OU HS [facility] Last Admin: 02/13/19 22:02 Dose: 1 drop Methylprednisolone Sodium Succinate (Solu-Medrol -) 40 mg IVPUSH Q8H-IV [facility] Last Admin: 02/14/19 01:16 Dose: 40 mg Nifedipine (Procardia Xl -) 60 mg PO DAILY [facility] Last Admin: 02/13/19 10:54 Dose: Not Given Tiotropium [place] (Spiriva Respimat) 2 puff IH DAILY [facility] Last Admin: 02/13/19 09:50 Dose: 2 puff - Objective Vital Signs: Vital Signs Temperature 98.2 F 02/14/19 06:00 Pulse Rate 90 02/14/19 06:00 Respiratory Rate 18 02/14/19 06:00 Blood Pressure 139/82 02/14/19 06:00 O2 Sat by Pulse Oximetry (%) 98 02/14/19 08:00 Constitutional: Yes: Well Nourished, Calm Eyes: Yes: WNL HENT: Yes: WNL Neck: Yes: WNL Cardiovascular: Yes: Regular Rate and Rhythm, S1, S2 Respiratory: Yes: Diminished, Wheezes (LESS WHEEZES YO,FEW BASILAR CRACKLES) Gastrointestinal: Yes: Normal Bowel Sounds, Soft Extremities: Yes: WNL Edema: No Labs: CBC, BMP Problem List - Problems (1) CHF (congestive heart failure) Code(s): I50.9 - HEART FAILURE, UNSPECIFIED (2) COPD exacerbation Code(s): J44.1 - CHRONIC OBSTRUCTIVE PULMONARY DISEASE W (ACUTE) EXACERBATION (3) Acute on chronic respiratory failure with hypoxemia Code(s): J96.21 - ACUTE AND CHRONIC RESPIRATORY FAILURE WITH HYPOXIA (4) Hypertension Code(s): I10 - ESSENTIAL (PRIMARY) HYPERTENSION Qualifiers: Hypertension type: essential hypertension (5) Shortness of breath Code(s): R06.02 - SHORTNESS OF BREATH (6) Troponin I above reference range Code(s): R74.8 - ABNORMAL LEVELS OF OTHER SERUM ENZYMES (7) Hypoxemia requiring supplemental oxygen Code(s): R09.02 - HYPOXEMIA; Z99.81 - DEPENDENCE ON SUPPLEMENTAL OXYGEN Assessment/Plan IMP ACUTE ON CHRONIC HYPOXEMIC RESPIRATORY FAILURE ADVANCED COPD WITH ACUTE EXACERBATION CHF HTN H/O CVA + TROPONIN PLAN CONTINUE IV STEROIDS SAME DOSE INHALED BRONCHODILATORS ABX LASIX ZITHROMAX 25Omg PO TIW O2 TO MAINTAIN O2 SAT 90% 0R GREATER DR CHATTERJEE Problem List - Problems (1) CHF (congestive heart failure) Code(s): I50.9 - HEART FAILURE, UNSPECIFIED (2) COPD exacerbation Code(s): J44.1 - CHRONIC OBSTRUCTIVE PULMONARY DISEASE W (ACUTE) EXACERBATION (3) Acute on chronic respiratory failure with hypoxemia Code(s): J96.21 - ACUTE AND CHRONIC RESPIRATORY FAILURE WITH HYPOXIA (4) Hypertension Code(s): I10 - ESSENTIAL (PRIMARY) HYPERTENSION Qualifiers: Hypertension type: essential hypertension (5) Shortness of breath Code(s): R06.02 - SHORTNESS OF BREATH (6) Troponin I above reference range Code(s): R74.8 - ABNORMAL LEVELS OF OTHER SERUM ENZYMES (7) Hypoxemia requiring supplemental oxygen Code(s): R09.02 - HYPOXEMIA; Z99.81 - DEPENDENCE ON SUPPLEMENTAL OXYGEN
[2019-02-14] MEDS: NIFEdipine E.R 60 MG TABLET (UD) PO SCH (09:34)
[2019-02-14] MEDS: DOXYCYCLINE HYCLATE 100 MG CAPSULE PO SCH ×2 (09:34→17:50)
[2019-02-14] MEDS: FUROSEMIDE 40 MG/4 ML INJECTABLE VIAL IVPUSH SCH (09:34)
[2019-02-14] MEDS: CEFTRIAXONE 1 G/50 ML PREMIX 50 ML IVPB SCH (09:34)
[2019-02-14] MEDS: ESCITALOPRAM OXALATE 10 MG TABLET (FP) PO SCH (09:35)
[2019-02-14] MEDS: BUDESONIDE/FORMETEROL FUMARATE 160/4.5 mcg INHALER IH SCH ×2 (09:35→21:15)
[2019-02-14] MEDS: DORZOLAMIDE 2% HCL OPHTHALMIC SOLUTION 10 ML BOTTLE OU SCH (09:47)
[2019-02-14] MEDS: ASPIRIN COATED 81 MG TABLET.EC PO SCH (10:00)
[2019-02-14] MEDS: TIOTROPIUM BROMIDE 2.5 MCG (SPIRIVA) RESPIMAT INHALER IH SCH (10:00)
--- NOTE | 2019-02-14 11:51 | PN ---
Physical Exam: SUBJECTIVE: Patient seen and examined sitting on edge of bed. Still feels sensation of urgency with banegas in place. OBJECTIVE: Vital Signs Period Temp Pulse Resp BP Sys/Frost Pulse Ox Last 24 Hr 97.6 F-98.5 F 90-108 18-20 108-139/72-82 89-99 GENERAL: The patient is awake, alert, and fully oriented, in no acute distress. Irritable. LUNGS: Bibasilar rales HEART: Regular rate and rhythm, S1, S2 ABDOMEN: Soft, nontender, nondistended EXTREMITIES: 2+ pulses, warm, well-perfused, no edema, no calf tenderness NEUROLOGICAL: Cranial nerves II through XII grossly intact. Normal speech, gait not observed. Active Medications Generic Name Dose Route Start Last Admin Trade Name Freq PRN Reason Stop Dose Admin Acetaminophen 650 mg 02/13/19 12:00 02/14/19 00:43 Tylenol - PO 650 mg Q6H PRN Administration PAIN LEVEL 1-5 Albuterol Sulfate 1 amp 02/12/19 19:44 Ventolin 0.083% Nebulizer Soln - NEB Q4H PRN SHORT OF BREATH/WHEEZING Aspirin 81 mg 02/13/19 10:00 02/13/19 09:41 Ecotrin - PO 81 mg DAILY [facility] Administration Atorvastatin Calcium 80 mg 02/13/19 22:00 02/13/19 22:00 Lipitor - PO 80 mg HS [facility] Administration Budesonide/Formoterol Fumarate 2 puff 02/12/19 22:00 02/14/19 09:35 Symbicort 160/4.5mcg - IH 2 puff BID [facility] Administration Dorzolamide HCl 1 drop 02/14/19 10:00 02/14/19 09:47 Trusopt 2% OU 1 drop BID@1000,1800 [facility] Administration Doxycycline Hyclate 100 mg 02/13/19 18:00 02/14/19 09:34 Vibramycin - PO 100 mg BID@1000,1800 [facility] Administration Escitalopram Oxalate 10 mg 02/13/19 10:00 02/14/19 09:35 Lexapro - PO 10 mg DAILY [facility] Administration Furosemide 40 mg 02/13/19 10:00 02/14/19 09:34 Lasix Injection - IVPUSH 40 mg DAILY [facility] Administration Heparin Sodium (Porcine) 5,000 unit 02/12/19 22:00 02/14/19 05:42 Heparin - SQ 5,000 unit TID [facility] Administration Ceftriaxone Sodium 50 mls @ 100 mls/hr 02/13/19 10:00 02/14/19 09:34 Ceftriaxone 1 Gm-D5w Bag IVPB 100 mls/hr DAILY [facility] Administration Protocol Latanoprost 1 drop 02/12/19 22:00 02/13/19 22:02 Xalatan 0.005% Eye Drops - OU 1 drop HS [facility] Administration Methylprednisolone Sodium Succinate 40 mg 02/13/19 10:45 02/14/19 09:34 Solu-Medrol - IVPUSH 40 mg Q8H-IV [facility] Administration Nifedipine 60 mg 02/13/19 10:00 02/14/19 09:34 Procardia Xl - PO 60 mg DAILY [facility] Administration Tiotropium Melvin 2 puff 02/13/19 10:00 02/13/19 09:50 Spiriva Respimat IH 2 puff DAILY [facility] Administration ASSESSMENT/PLAN 78 year-old female with a PMH significant for TIA, diastolic heart failure, carotid artery disease s/p endarterectomy, peripheral arterial disease s/p fem pop bypass, and COPD. Admitted for hypoxic respiratory failure, CHF and COPD exacerbation. Now with CAP. Acute on chronic hypoxic respiratory failure secondary to diastolic HF exacerbation and COPD exacerbation --at home patient is on 3L continuous O2 and baseline SpO2 is high 80s; prior to coming to ED sats were in high 70s --titrate FiO2 85-89% Acute on chronic diastolic heart failure --02/13 Echo: LV normal, EF 60-65%; RV normal; trace MR; mild to moderate TR, severe pHTN; trace AI; mild PI --bilateral rales on exam, CXR shows congestive changes, BNP>5,000 --Lasix IVP 40mg daily --telemetry monitoringd --daily weights, strict I&Os --cardiology consult Elevated troponins --troponin 0.09-->0.08-->0.06; no signs of ACS; likely secondary to HF demand --ECG: no acute ischemic changes, Q waves Atherosclerotic disease --h/o TIA, carotid artery disease, and peripheral artery disease --on ASA and high-dose statin Community acquired pneumonia COPD exacerbation --02/13 CT chest: small left posterior basilar subpleural infiltrate --continue ceftriaxone; start doxy IV BID (azithro contraindicated due to prolonged QTc and on Lexapro) --albuterol nebs PRN --continue Spiriva, Symbicort --solumedrol 40mg q8h UTI --symptomatic: urgency, dysuria --UA >100WBCs --cultures neg x 2 --antibiotics as above Compression fractures, chronic --seen on CT at C7, T6, T11, L1 FEN Fluids: PO intake adequate Electrolytes: replete as indicated Nutrition: low sodium DVT prophylaxis: subq heparin Physical therapy Dispo: continues to require inpatient care. Full code. Visit type - Emergency Visit Emergency Visit: Yes ED Registration Date: 02/12/19 Care time: The patient presented to the Emergency Department on the above date and was hospitalized for further evaluation of their emergent condition. - New Patient This patient is new to me today: No - Critical Care Critical Care patient: No
--- NOTE | 2019-02-14 15:41 | EKG ---
Test Reason : Blood Pressure : / mmHG Vent. Rate : 092 BPM Atrial Rate : 092 BPM P-R Int : 160 ms QRS Dur : 092 ms QT Int : 384 ms P-R-T Axes : 064 093 058 degrees QTc Int : 474 ms NORMAL SINUS RHYTHM INCOMPLETE RIGHT BUNDLE BRANCH BLOCK POSSIBLE RIGHT VENTRICULAR HYPERTROPHY POSSIBLE INFERIOR INFARCT (CITED ON OR BEFORE 12-FEB-2019) NONSPECIFIC ST ABNORMALITY ABNORMAL ECG Confirmed by INES MATIAS MD ([id number] on 02/14/2019 3:41:[address] PM Referred By: DR OCHOA Confirmed By:INES MATIAS MD
--- NOTE | 2019-02-14 17:15 | PN ---
Progress Note (short form) - Note Progress Note: s: sob better, no cp palps dizzy o: Vital Signs Period Temp Pulse Resp BP Sys/Frost Pulse Ox Last 24 Hr 97.3 F-98.5 F 82-108 18-20 79-139/56-82 89-99 Constitutional: Yes: Well Nourished, No Distress, Calm Eyes: Yes: Conjunctiva Clear Neck: Yes: Supple, Trachea Midline Respiratory: Yes: Regular, left basilar crackles Gastrointestinal: Yes: Normal Bowel Sounds, Soft JVD: Yes Heart Sounds: Yes: S1, S2 Musculoskeletal: No: Back Pain Extremities: No: Cold Edema: no Peripheral Pulses: 2+ Left Doralis Pedis, 2+ Right Dorsalis Pedis Integumentary: No: Jaundice diaphoresis Neurological: Yes: Alert, Oriented Psychiatric: No: Agitated Current Medications Generic Name Dose Route Start Last Admin Trade Name Freq PRN Reason Stop Dose Admin Acetaminophen 650 mg 02/13/19 12:00 02/14/19 00:43 Tylenol - PO 650 mg Q6H PRN Administration PAIN LEVEL 1-5 Albuterol Sulfate 1 amp 02/12/19 19:44 02/14/19 15:28 Ventolin 0.083% Nebulizer Soln - NEB 1 amp Q4H PRN Administration SHORT OF BREATH/WHEEZING Aspirin 81 mg 02/13/19 10:00 02/14/19 10:00 Ecotrin - PO 81 mg DAILY [facility] Administration Atorvastatin Calcium 80 mg 02/13/19 22:00 02/13/19 22:00 Lipitor - PO 80 mg HS [facility] Administration Budesonide/Formoterol Fumarate 2 puff 02/12/19 22:00 02/14/19 09:35 Symbicort 160/4.5mcg - IH 2 puff BID [facility] Administration Dorzolamide HCl 1 drop 02/14/19 10:00 02/14/19 09:47 Trusopt 2% OU 1 drop BID@1000,1800 [facility] Administration Doxycycline Hyclate 100 mg 02/13/19 18:00 02/14/19 09:34 Vibramycin - PO 100 mg BID@1000,1800 [facility] Administration Escitalopram Oxalate 10 mg 02/13/19 10:00 02/14/19 09:35 Lexapro - PO 10 mg DAILY [facility] Administration Furosemide 40 mg 02/13/19 10:00 02/14/19 09:34 Lasix Injection - IVPUSH 40 mg DAILY [facility] Administration Heparin Sodium (Porcine) 5,000 unit 02/12/19 22:00 02/14/19 15:30 Heparin - SQ 5,000 unit TID [facility] Administration Ceftriaxone Sodium 50 mls @ 100 mls/hr 02/13/19 10:00 02/14/19 09:34 Ceftriaxone 1 Gm-D5w Bag IVPB 100 mls/hr DAILY [facility] Administration Protocol Latanoprost 1 drop 02/12/19 22:00 02/13/19 22:02 Xalatan 0.005% Eye Drops - OU 1 drop HS [facility] Administration Methylprednisolone Sodium Succinate 40 mg 02/13/19 10:45 02/14/19 09:34 Solu-Medrol - IVPUSH 40 mg Q8H-IV [facility] Administration Nifedipine 60 mg 02/13/19 10:00 02/14/19 09:34 Procardia Xl - PO 60 mg DAILY [facility] Administration Tiotropium [place] 2 puff 02/13/19 10:00 02/14/19 10:00 Spiriva Respimat IH 2 puff DAILY [facility] Administration CBC, BMP 02/13/19 07:13 02/13/19 06:00 Assessment/Plan EKG: sinus, nl intervals, no ischemic changes tele: sinus CXR: congestive changes echo 01/2019: nl lv, mod rve, nl rv fcn, mild-mod tr, mild pr, sev phtn 78 year-old female with a PMH significant for diastolic heart failure, carotid artery disease s/p endarterectomy, peripheral arterial disease s/p fem pop bypass, and COPD. Admitted for hypoxic respiratory failure. acute on chronic diastolic HF, shortness of breath - pulm following, SOB likely also component of COPD - improving on IV lasix, continue - monitor daily weights, Cr, lytes elevated trop - flat trend, indeterminate range, EKG no ischemic changes - unlikely ACS, more likely demand in setting of HF COPD exac - manage per pulm UTI - manage per primary, on abx PAD, carotid stenosis - cont aspirin, statin HTN - cont home meds pulm htn: -cont tx of chf, copd. Would repeat echo as outpt when acute issues resolve to see if RVSP improves.
[2019-02-14] MEDS: ATORVASTATIN CA 80 MG TABLET (FP) PO SCH (21:12)
[2019-02-14] MEDS: LATANOPROST 0.005% OPHTH SOLN 2.5ML BOTTLE OU SCH (21:16)
[2019-02-14] MEDS ORDERED: MELATONIN 5 MG TABLETS PO PRN (22:00)
[2019-02-15] MEDS: methylPREDNISolone NA SUCC 40 MG/1 ML VIAL IVPUSH SCH ×3 (01:19→17:04)
[2019-02-15] MEDS: HEPARIN NA (PORCINE) 5,000 UNITS/ML 1ML VIAL SQ SCH ×3 (06:37→21:29)
[2019-02-15] MEDS: DORZOLAMIDE 2% HCL OPHTHALMIC SOLUTION 10 ML BOTTLE OU SCH ×3 (08:21→17:04)
[2019-02-15] MEDS ORDERED: PT OWN MED DRAWER 7, Y5N ONE ×2 (09:39→21:27)
--- NOTE | 2019-02-15 09:41 | PN ---
Physical Exam: SUBJECTIVE: Patient seen and examined at bedside. Pt reports sob improving , denies cough, chest pain, palpitations, abdominal pain, N/V/D. pt states dysuria improved, no hematuria. OBJECTIVE: Vital Signs Period Temp Pulse Resp BP Sys/Frost Pulse Ox Last 24 Hr 97.3 F-98.4 F 82-108 18-20 79-125/56-87 87-98 GENERAL: The patient is awake, alert, and fully oriented, in no acute distress. HEAD: Normal with no signs of trauma. EYES: PERRL, extraocular movements intact, sclera anicteric, conjunctiva clear. No ptosis. ENT: Ears normal, nares patent, oropharynx clear without exudates, moist mucous membranes. NECK: Trachea midline, full range of motion, supple. LUNGS: Breath sounds equal, no wheezes, positive crackles, no accessory muscle use. HEART: Regular rate and rhythm, S1, S2 without murmur, rub or gallop. ABDOMEN: Soft, nontender, non distended, normoactive bowel sounds, no guarding, no rebound, no hepatosplenomegaly, no masses. EXTREMITIES: 2+ pulses, warm, well-perfused, no edema. NEUROLOGICAL: Cranial nerves II through XII grossly intact. Normal speech, gait not observed. PSYCH: Normal mood, normal affect. SKIN: Warm, dry, normal turgor, no rashes or lesions noted - [place] Active Medications Generic Name Dose Route Start Last Admin Trade Name Freq PRN Reason Stop Dose Admin Acetaminophen 650 mg 02/13/19 12:00 02/14/19 17:47 Tylenol - PO 650 mg Q6H PRN Administration PAIN LEVEL 1-5 Albuterol Sulfate 1 amp 02/12/19 19:44 02/14/19 15:28 Ventolin 0.083% Nebulizer Soln - NEB 1 amp Q4H PRN Administration SHORT OF BREATH/WHEEZING Aspirin 81 mg 02/13/19 10:00 02/14/19 10:00 Ecotrin - PO 81 mg DAILY [facility] Administration Atorvastatin Calcium 80 mg 02/13/19 22:00 02/14/19 21:12 Lipitor - PO 80 mg HS [facility] Administration Budesonide/Formoterol Fumarate 2 puff 02/12/19 22:00 02/14/19 21:15 Symbicort 160/4.5mcg - IH 2 puff BID [facility] Administration Dorzolamide HCl 1 drop 02/14/19 10:00 02/15/19 08:21 Trusopt 2% OU Not Given BID@1000,1800 [facility] Doxycycline Hyclate 100 mg 02/13/19 18:00 02/14/19 17:50 Vibramycin - PO 100 mg BID@1000,1800 [facility] Administration Escitalopram Oxalate 10 mg 02/13/19 10:00 02/14/19 09:35 Lexapro - PO 10 mg DAILY [facility] Administration Furosemide 40 mg 02/13/19 10:00 02/14/19 09:34 Lasix Injection - IVPUSH 40 mg DAILY [facility] Administration Heparin Sodium (Porcine) 5,000 unit 02/12/19 22:00 02/15/19 06:37 Heparin - SQ 5,000 unit TID [facility] Administration Ceftriaxone Sodium 50 mls @ 100 mls/hr 02/13/19 10:00 02/14/19 09:34 Ceftriaxone 1 Gm-D5w Bag IVPB 100 mls/hr DAILY [facility] Administration Protocol Latanoprost 1 drop 02/12/19 22:00 02/14/19 21:16 Xalatan 0.005% Eye Drops - OU 1 drop HS [facility] Administration Methylprednisolone Sodium Succinate 40 mg 02/13/19 10:45 02/15/19 01:19 Solu-Medrol - IVPUSH 40 mg Q8H-IV [facility] Administration Nifedipine 60 mg 02/13/19 10:00 02/14/19 09:34 Procardia Xl - PO 60 mg DAILY [facility] Administration Tiotropium [place] 2 puff 02/13/19 10:00 02/14/19 10:00 Spiriva Respimat IH 2 puff DAILY [facility] Administration ASSESSMENT/PLAN: 78 year-old female with a PMH significant for TIA, diastolic heart failure, carotid artery disease s/p endarterectomy, peripheral arterial disease s/p fem pop bypass, and COPD. Admitted for hypoxic respiratory failure, CHF and COPD exacerbation. Now with CAP. *Acute on chronic hypoxic respiratory failure secondary to diastolic HF exacerbation/COPD exacerbation / CAP -O2 dependent at home 3L continuous O2 and baseline SpO2 is high 80s; prior to coming to ED sats were in high 70s -O2 sat 85-90's now -will cont on Steroid, Lasix and abx *Acute on chronic diastolic heart failure -02/13 Echo: LV normal, EF 60-65%; RV normal; trace MR; mild to moderate TR, severe pHTN; trace AI; mild PI - CXR shows congestive changes - BNP>5,000 -will cont on Lasix IVP 40mg daily -telemetry monitoring -daily weights, strict I&Os -cardiology following *Elevated troponins- denies cp -troponin 0.09-->0.08-->0.06; no signs of ACS; likely secondary to HF demand -ECG: no acute ischemic changes, Q waves *Atherosclerotic disease -h/o TIA, carotid artery disease, and peripheral artery disease -on ASA and high-dose statin *Community acquired pneumonia/COPD exacerbation -02/13 CT chest: small left posterior basilar subpleural infiltrate -continue ceftriaxone and doxy IV BID (azithro contraindicated due to prolonged QTc and on Lexapro) --solumedrol 40mg q8h -continue Spiriva, Symbicort,albuterol nebs PRN - pulmonary following - afebrile with mild leukocytosis *UTI -symptomatic: urgency, dysuria -UA >100WBCs -BC neg x 2 - urine culture < 10,000 -antibiotics as above - [place] in, refused to remove *Compression fractures, chronic -seen on CT at C7, T6, T11, L1 - pain control - PT eval FEN Fluids: PO intake adequate Electrolytes: replete as indicated Nutrition: low sodium DVT prophylaxis: subq heparin Physical therapy Dispo: continues to require inpatient care. Full code. Visit type - Emergency Visit Emergency Visit: Yes ED Registration Date: 02/12/19 Care time: The patient presented to the Emergency Department on the above date and was hospitalized for further evaluation of their emergent condition. - New Patient This patient is new to me today: Yes Date on this admission: 02/15/19 - Critical Care Critical Care patient: No
[2019-02-15] MEDS: ASPIRIN COATED 81 MG TABLET.EC PO SCH (09:46)
[2019-02-15] MEDS: NIFEdipine E.R 60 MG TABLET (UD) PO SCH (09:46)
[2019-02-15] MEDS: CEFTRIAXONE 1 G/50 ML PREMIX 50 ML IVPB SCH (09:46)
[2019-02-15] MEDS: DOXYCYCLINE HYCLATE 100 MG CAPSULE PO SCH ×2 (09:46→17:04)
[2019-02-15] MEDS: FUROSEMIDE 40 MG/4 ML INJECTABLE VIAL IVPUSH SCH (09:46)
[2019-02-15] MEDS: ESCITALOPRAM OXALATE 10 MG TABLET (FP) PO SCH (09:46)
[2019-02-15] MEDS: BUDESONIDE/FORMETEROL FUMARATE 160/4.5 mcg INHALER IH SCH ×2 (10:03→21:29)
[2019-02-15] MEDS: TIOTROPIUM BROMIDE 2.5 MCG (SPIRIVA) RESPIMAT INHALER IH SCH (10:03)
[2019-02-15 10:29] LABS: BASO % 0.5 % (0-2.0); HEMATOCRIT 47.6 % (32.4-45.2); HEMOGLOBIN 15.3 GM/dl (10.7-15.3); LYMPH % 12.9 % (8-40); MCHC 32.2 g/dl (32.0-36.0); MEAN CELL VOLUME 99.2 fl (80-96); MEAN PLT VOLUME 8.1 fl (7.5-11.1); MONO % 3.1 % (3.8-10.2); NEUT % 83.5 % (42.8-82.8); PLATELET COUNT 261 K/MM3 (134-434); RDW 13.9 % (11.6-15.6); WHITE BLOOD COUNT 12.6 K/mm3 (4.0-10.8)
[2019-02-15 10:53] LABS: CALCIUM 9.4 mg/dl (8.5-10); MAGNESIUM 1.9 mg/dL (1.8-2.4); POTASSIUM 4.3 mmol/L (3.5-5.1)
--- NOTE | 2019-02-15 11:21 | PN ---
Progress Note, Physician Chief Complaint: sitting in chair No distress - Current Medication List Current Medications: Active Medications Acetaminophen (Tylenol -) 650 mg PO Q6H PRN PRN Reason: PAIN LEVEL 1-5 Last Admin: 02/14/19 17:47 Dose: 650 mg Albuterol Sulfate (Ventolin 0.083% Nebulizer Soln -) 1 amp NEB Q4H PRN PRN Reason: SHORT OF BREATH/WHEEZING Last Admin: 02/14/19 15:28 Dose: 1 amp Aspirin (Ecotrin -) 81 mg PO DAILY [facility] Last Admin: 02/15/19 09:46 Dose: 81 mg Atorvastatin Calcium (Lipitor -) 80 mg PO HS [facility] Last Admin: 02/14/19 21:12 Dose: 80 mg Budesonide/Formoterol Fumarate (Symbicort 160/4.5mcg -) 2 puff IH BID [facility] Last Admin: 02/15/19 10:03 Dose: 2 puff Dorzolamide HCl (Trusopt 2%) 1 drop OU BID@1000,1800 [facility] Last Admin: 02/15/19 09:58 Dose: 1 drop Doxycycline Hyclate (Vibramycin -) 100 mg PO BID@1000,1800 [facility] Last Admin: 02/15/19 09:46 Dose: 100 mg Escitalopram Oxalate (Lexapro -) 10 mg PO DAILY [facility] Last Admin: 02/15/19 09:46 Dose: 10 mg Furosemide (Lasix Injection -) 40 mg IVPUSH DAILY [facility] Last Admin: 02/15/19 09:46 Dose: 40 mg Heparin Sodium (Porcine) (Heparin -) 5,000 unit SQ TID [facility] Last Admin: 02/15/19 06:37 Dose: 5,000 unit Ceftriaxone Sodium (Ceftriaxone 1 Gm-D5w Bag) 50 mls @ 100 mls/hr IVPB DAILY [facility]; Protocol Last Admin: 02/15/19 09:46 Dose: 100 mls/hr Latanoprost (Xalatan 0.005% Eye Drops -) 1 drop OU HS [facility] Last Admin: 02/14/19 21:16 Dose: 1 drop Methylprednisolone Sodium Succinate (Solu-Medrol -) 40 mg IVPUSH Q8H-IV [facility] Last Admin: 02/15/19 09:46 Dose: 40 mg Nifedipine (Procardia Xl -) 60 mg PO DAILY [facility] Last Admin: 02/15/19 09:46 Dose: 60 mg Tiotropium [place] (Spiriva Respimat) 2 puff IH DAILY [facility] Last Admin: 02/15/19 10:03 Dose: 2 puff - Objective Vital Signs: Vital Signs Temperature 97.7 F 02/15/19 06:27 Pulse Rate 95 H 02/15/19 06:27 Respiratory Rate 18 02/15/19 07:56 Blood Pressure 125/87 02/15/19 06:27 O2 Sat by Pulse Oximetry (%) 87 L 02/15/19 07:56 Constitutional: Yes: No Distress Cardiovascular: Yes: Regular Rate and Rhythm Respiratory: Yes: Other (bibasilar rales) Gastrointestinal: Yes: Soft Edema: No Neurological: Yes: Alert Labs: CBC, BMP 02/15/19 10:25 02/15/19 10:25 INR, PTT INR 1.16 (0.82-1.09) 02/13/19 07:13 Selected Entries 02/15/19 07:27 Weight 159 lb 4 oz Laboratory Tests 02/15/19 02/15/19 10:25 10:25 WBC 12.6 H Hgb 15.3 Plt Count 261 Sodium 139 Potassium 4.3 Creatinine 1.0 Magnesium 1.9 Laboratory Tests 02/12/19 02/12/19 02/12/19 14:21 14:21 20:09 Troponin I 0.09 H 0.08 H B-Natriuretic Peptide 5016.4 H 02/13/19 06:00 Troponin I 0.06 H B-Natriuretic Peptide - ....Imaging EKG: Image Reviewed Assessment/Plan Assessment/Plan EKG: sinus, nl intervals, no ischemic changes tele: sinus CXR: congestive changes echo 01/2019: nl lv, mod rve, nl rv fcn, mild-mod tr, mild pr, sev phtn 78 year-old female with a PMH significant for diastolic heart failure, carotid artery disease s/p endarterectomy, peripheral arterial disease s/p fem pop bypass, and COPD. Admitted for hypoxic respiratory failure. Acute on chronic diastolic HF: - pulm following, SOB likely also component of COPD - improving on IV lasix, continue, weight is down from admission. - monitor daily weights, Cr, lytes Elevated trop: - flat trend, indeterminate range, EKG no ischemic changes - unlikely ACS, more likely demand in setting of HF COPD exac: - manage per pulm UTI - manage per primary, on abx PAD, carotid stenosis - cont aspirin, statin HTN - cont home meds Pulm htn: secondary to COPD, chronic diastolic CHF -cont tx of chf, copd. Would repeat echo as outpt when acute issues resolve to see if RVSP improves.
[2019-02-15] MEDS: ATORVASTATIN CA 80 MG TABLET (FP) PO SCH (21:29)
[2019-02-15] MEDS: LATANOPROST 0.005% OPHTH SOLN 2.5ML BOTTLE OU SCH (21:30)
[2019-02-15] MEDS: ACETAMINOPHEN 325 MG TABLET (FP) PO PRN (22:00)
[2019-02-15] MEDS: MELATONIN 5 MG TABLETS PO PRN (22:40)
[2019-02-16] MEDS: methylPREDNISolone NA SUCC 40 MG/1 ML VIAL IVPUSH SCH ×2 (01:11→09:59)
[2019-02-16] MEDS: HEPARIN NA (PORCINE) 5,000 UNITS/ML 1ML VIAL SQ SCH ×3 (07:23→21:18)
[2019-02-16] MEDS: FUROSEMIDE 40 MG/4 ML INJECTABLE VIAL IVPUSH SCH (09:59)
[2019-02-16] MEDS: NIFEdipine E.R 60 MG TABLET (UD) PO SCH (09:59)
[2019-02-16] MEDS: DOXYCYCLINE HYCLATE 100 MG CAPSULE PO SCH ×2 (09:59→17:33)
[2019-02-16] MEDS: TIOTROPIUM BROMIDE 2.5 MCG (SPIRIVA) RESPIMAT INHALER IH SCH (09:59)
[2019-02-16] MEDS: BUDESONIDE/FORMETEROL FUMARATE 160/4.5 mcg INHALER IH SCH ×2 (09:59→21:25)
[2019-02-16] MEDS: ESCITALOPRAM OXALATE 10 MG TABLET (FP) PO SCH (09:59)
[2019-02-16] MEDS: CEFTRIAXONE 1 G/50 ML PREMIX 50 ML IVPB SCH (09:59)
[2019-02-16] MEDS: ASPIRIN COATED 81 MG TABLET.EC PO SCH (09:59)
[2019-02-16] MEDS: DORZOLAMIDE 2% HCL OPHTHALMIC SOLUTION 10 ML BOTTLE OU SCH ×2 (09:59→17:33)
--- NOTE | 2019-02-16 10:09 | PN ---
Physical Exam: SUBJECTIVE: Patient seen and examined. Pt reports feeling better, intermittent dry cough, no other complains. OBJECTIVE: Vital Signs Period Temp Pulse Resp BP Sys/Frost Pulse Ox Last 24 Hr 97.3 F-98.0 F 96-106 17-20 105-129/67-91 88-98 GENERAL: The patient is awake, alert, and fully oriented, in no acute distress. HEAD: Normal with no signs of trauma. EYES: PERRL, extraocular movements intact, sclera anicteric, conjunctiva clear. No ptosis. ENT: Ears normal, nares patent, oropharynx clear without exudates, moist mucous membranes. NECK: Trachea midline, full range of motion, supple. LUNGS: BS diminished bilaterally,no wheezes, crackles noted, no accessory muscle use. HEART: Regular rate and rhythm, S1, S2 without murmur, rub or gallop. ABDOMEN: Soft, nontender, nondistended, normoactive bowel sounds, no guarding, no rebound, no hepatosplenomegaly, no masses. EXTREMITIES: 2+ pulses, warm, well-perfused, no edema. NEUROLOGICAL: Cranial nerves II through XII grossly intact. Normal speech, gait not observed. PSYCH: Normal mood, normal affect. SKIN: Warm, dry, normal turgor, no rashes or lesions noted Laboratory Results - last 24 hr 02/15/19 02/15/19 10:25 10:25 WBC 12.6 H RBC 4.80 Hgb 15.3 Hct 47.6 H MCV 99.2 H MCH 32.0 MCHC 32.2 RDW 13.9 Plt Count 261 MPV 8.1 Absolute Neuts (auto) 10.5 Neutrophils % 83.5 H Lymphocytes % 12.9 Monocytes % 3.1 L Eosinophils % 0.0 Basophils % 0.5 Sodium 139 Potassium 4.3 Chloride 102 Carbon Dioxide 26 Anion Gap 11 BUN 28.0 H Creatinine 1.0 Est GFR (CKD-EPI)AfAm 63.38 Est GFR (CKD-EPI)NonAf 54.68 Random Glucose 158 H Calcium 9.4 Magnesium 1.9 Active Medications Generic Name Dose Route Start Last Admin Trade Name Freq PRN Reason Stop Dose Admin Acetaminophen 650 mg 02/13/19 12:00 02/15/19 22:00 Tylenol - PO 650 mg Q6H PRN Administration PAIN LEVEL 1-5 Albuterol Sulfate 1 amp 02/12/19 19:44 02/14/19 15:28 Ventolin 0.083% Nebulizer Soln - NEB 1 amp Q4H PRN Administration SHORT OF BREATH/WHEEZING Aspirin 81 mg 02/13/19 10:00 02/16/19 09:59 Ecotrin - PO 81 mg DAILY [facility] Administration Atorvastatin Calcium 80 mg 02/13/19 22:00 02/15/19 21:29 Lipitor - PO 80 mg HS [facility] Administration Budesonide/Formoterol Fumarate 2 puff 02/12/19 22:00 02/16/19 09:59 Symbicort 160/4.5mcg - IH 2 puff BID [facility] Administration Dorzolamide HCl 1 drop 02/14/19 10:00 02/16/19 09:59 Trusopt 2% OU 1 drop BID@1000,1800 [facility] Administration Doxycycline Hyclate 100 mg 02/13/19 18:00 02/16/19 09:59 Vibramycin - PO 100 mg BID@1000,1800 [facility] Administration Escitalopram Oxalate 10 mg 02/13/19 10:00 02/16/19 09:59 Lexapro - PO 10 mg DAILY [facility] Administration Furosemide 40 mg 02/13/19 10:00 02/16/19 09:59 Lasix Injection - IVPUSH 40 mg DAILY [facility] Administration Heparin Sodium (Porcine) 5,000 unit 02/12/19 22:00 02/16/19 07:23 Heparin - SQ 5,000 unit TID [facility] Administration Ceftriaxone Sodium 50 mls @ 100 mls/hr 02/13/19 10:00 02/16/19 09:59 Ceftriaxone 1 Gm-D5w Bag IVPB 100 mls/hr DAILY [facility] Administration Protocol Latanoprost 1 drop 02/12/19 22:00 02/15/19 21:30 Xalatan 0.005% Eye Drops - OU 1 drop HS [facility] Administration Melatonin 5 mg 02/15/19 22:26 02/15/19 22:40 Melatonin PO 5 mg HS PRN Administration INSOMNIA Methylprednisolone Sodium Succinate 40 mg 02/13/19 10:45 02/16/19 09:59 Solu-Medrol - IVPUSH 40 mg Q8H-IV [facility] Administration Nifedipine 60 mg 02/13/19 10:00 02/16/19 09:59 Procardia Xl - PO 60 mg DAILY [facility] Administration Tiotropium [place] 2 puff 02/13/19 10:00 02/16/19 09:59 Spiriva Respimat IH 2 puff DAILY [facility] Administration ASSESSMENT/PLAN: 78 year-old female with a PMH significant for TIA, diastolic heart failure, carotid artery disease s/p endarterectomy, peripheral arterial disease s/p fem pop bypass, and COPD. Admitted for hypoxic respiratory failure, CHF and COPD. exacerbation. Now with CAP. *Acute on chronic hypoxic respiratory failure secondary to diastolic HF exacerbation/COPD exacerbation / CAP- improving -O2 dependent at home 3L continuous O2 and baseline SpO2 is high 80s -O2 sat 89-90's now -will cont on Steroid, Lasix and abx *Acute on chronic diastolic heart failure- improving -02/13 Echo: LV normal, EF 60-65%; RV normal; trace MR; mild to moderate TR, severe pHTN; trace AI; mild PI - CXR shows congestive changes - BNP>5,000 -will cont on Lasix IVP 40mg daily -telemetry monitoring -daily weights, strict I&Os -cardiology following *Elevated troponins- denies cp -troponin 0.09-->0.08-->0.06; no signs of ACS; likely secondary to HF demand -ECG: no acute ischemic changes, Q waves *Atherosclerotic disease -h/o TIA, carotid artery disease, and peripheral artery disease -on ASA and high-dose statin *Community acquired pneumonia/COPD exacerbation -02/13 CT chest: small left posterior basilar subpleural infiltrate -continue ceftriaxone and doxy IV BID (azithro contraindicated due to prolonged QTc and on Lexapro) --solumedrol 40mg q8h -continue Spiriva, Symbicort,albuterol nebs PRN - pulmonary following - afebrile with mild leukocytosis *UTI -symptomatic: urgency, dysuria -UA >100WBCs -BC neg x 2 - urine culture < 10,000 -antibiotics as above - [place] in, refused to remove - [place] care *Compression fractures, chronic -seen on CT at C7, T6, T11, L1 - pain control - PT eval following FEN Fluids: PO intake adequate Electrolytes: replete as indicated Nutrition: low sodium DVT prophylaxis: subq heparin Dispo: continues to require inpatient care. Full code. Visit type - Emergency Visit Emergency Visit: Yes ED Registration Date: 02/12/19 Care time: The patient presented to the Emergency Department on the above date and was hospitalized for further evaluation of their emergent condition. - New Patient This patient is new to me today: No - Critical Care Critical Care patient: No
[2019-02-16 10:51] LABS: BASO % 0.5 % (0-2.0); HEMATOCRIT 50.7 % (32.4-45.2); HEMOGLOBIN 16.1 GM/dl (10.7-15.3); LYMPH % 13.1 % (8-40); MCH 31.5 pg (25.7-33.7); MCHC 31.8 g/dl (32.0-36.0); MEAN PLT VOLUME 8.9 fl (7.5-11.1); MONO % 3.1 % (3.8-10.2); NEUT % 83.3 % (42.8-82.8); PLATELET COUNT 277 K/MM3 (134-434); RBC 5.12 M/mm3 (3.60-5.2); RDW 14.3 % (11.6-15.6); WHITE BLOOD COUNT 11.9 K/mm3 (4.0-10.8)
[2019-02-16 12:51] LABS: CALCIUM 9.8 mg/dl (8.5-10); POTASSIUM 4.3 mmol/L (3.5-5.1)
--- NOTE | 2019-02-16 14:51 | PN ---
Progress Note (short form) - Note Progress Note: Feeling better. Feels tired. No CP. Cough and SOB is better. Intake & Output 02/13/19 02/14/19 02/15/19 02/16/19 23:59 23:59 23:59 23:59 Intake Total 1175 1130 250 Output Total 9053 593 5032 250 Balance -375 1030 -1350 -250 Weight 158 lb 7 oz 159 lb 4 oz 161 lb 6 oz Last Vital Signs Temp Pulse Resp BP Pulse Ox 97.9 F 100 H 20 101/40 L 89 L 02/16/19 13:48 02/16/19 13:48 02/16/19 13:48 02/16/19 13:48 02/16/19 08:02 Active Medications Acetaminophen (Tylenol -) 650 mg PO Q6H PRN PRN Reason: PAIN LEVEL 1-5 Last Admin: 02/15/19 22:00 Dose: 650 mg Albuterol Sulfate (Ventolin 0.083% Nebulizer Soln -) 1 amp NEB Q4H PRN PRN Reason: SHORT OF BREATH/WHEEZING Last Admin: 02/14/19 15:28 Dose: 1 amp Aspirin (Ecotrin -) 81 mg PO DAILY [facility] Last Admin: 02/16/19 09:59 Dose: 81 mg Atorvastatin Calcium (Lipitor -) 80 mg PO HS [facility] Last Admin: 02/15/19 21:29 Dose: 80 mg Budesonide/Formoterol Fumarate (Symbicort 160/4.5mcg -) 2 puff IH BID [facility] Last Admin: 02/16/19 09:59 Dose: 2 puff Dorzolamide HCl (Trusopt 2%) 1 drop OU BID@1000,1800 [facility] Last Admin: 02/16/19 09:59 Dose: 1 drop Doxycycline Hyclate (Vibramycin -) 100 mg PO BID@1000,1800 [facility] Last Admin: 02/16/19 09:59 Dose: 100 mg Escitalopram Oxalate (Lexapro -) 10 mg PO DAILY [facility] Last Admin: 02/16/19 09:59 Dose: 10 mg Furosemide (Lasix Injection -) 40 mg IVPUSH DAILY [facility] Last Admin: 02/16/19 09:59 Dose: 40 mg Heparin Sodium (Porcine) (Heparin -) 5,000 unit SQ TID [facility] Last Admin: 02/16/19 13:40 Dose: 5,000 unit Ceftriaxone Sodium (Ceftriaxone 1 Gm-D5w Bag) 50 mls @ 100 mls/hr IVPB DAILY [facility]; Protocol Last Admin: 02/16/19 09:59 Dose: 100 mls/hr Latanoprost (Xalatan 0.005% Eye Drops -) 1 drop OU HS [facility] Last Admin: 02/15/19 21:30 Dose: 1 drop Melatonin (Melatonin) 5 mg PO HS PRN PRN Reason: INSOMNIA Last Admin: 02/15/19 22:40 Dose: 5 mg Methylprednisolone Sodium Succinate (Solu-Medrol -) 40 mg IVPUSH Q8H-IV [facility] Last Admin: 02/16/19 09:59 Dose: 40 mg Nifedipine (Procardia Xl -) 60 mg PO DAILY [facility] Last Admin: 02/16/19 09:59 Dose: 60 mg Tiotropium [place] (Spiriva Respimat) 2 puff IH DAILY [facility] Last Admin: 02/16/19 09:59 Dose: 2 puff \ Constitutional: Yes: Well Nourished, Calm Eyes: Yes: WNL HENT: Yes: WNL Neck: Yes: WNL Cardiovascular: Yes: Regular Rate and Rhythm, S1, S2 Respiratory: Yes: Diminished, No Wheezes, few scattered rhonchi Gastrointestinal: Yes: Normal Bowel Sounds, Soft Extremities: Yes: WNL Edema: No Labs: Laboratory Results - last 24 hr 02/16/19 02/16/19 02/16/19 10:20 10:20 12:00 WBC 11.9 H RBC 5.12 Hgb 16.1 H Hct 50.7 H MCV 99.0 H MCH 31.5 MCHC 31.8 L RDW 14.3 Plt Count 277 MPV 8.9 Absolute Neuts (auto) 9.8 Neutrophils % 83.3 H Lymphocytes % 13.1 Monocytes % 3.1 L Eosinophils % 0.0 Basophils % 0.5 Sodium Cancelled 141 Potassium Cancelled 4.3 Chloride Cancelled 98 Carbon Dioxide Cancelled 29 Anion Gap Cancelled 14 BUN Cancelled 31.0 H Creatinine Cancelled 1.0 Est GFR (CKD-EPI)AfAm Cancelled 63.38 Est GFR (CKD-EPI)NonAf Cancelled 54.68 Random Glucose Cancelled 115 H Calcium Cancelled 9.8 Problem List - Problems (1) CHF (congestive heart failure) Code(s): I50.9 - HEART FAILURE, UNSPECIFIED (2) COPD exacerbation Code(s): J44.1 - CHRONIC OBSTRUCTIVE PULMONARY DISEASE W (ACUTE) EXACERBATION (3) Acute on chronic respiratory failure with hypoxemia Code(s): J96.21 - ACUTE AND CHRONIC RESPIRATORY FAILURE WITH HYPOXIA (4) Hypertension Code(s): I10 - ESSENTIAL (PRIMARY) HYPERTENSION Qualifiers: Hypertension type: essential hypertension (5) Shortness of breath Code(s): R06.02 - SHORTNESS OF BREATH (6) Troponin I above reference range Code(s): R74.8 - ABNORMAL LEVELS OF OTHER SERUM ENZYMES (7) Hypoxemia requiring supplemental oxygen Code(s): R09.02 - HYPOXEMIA; Z99.81 - DEPENDENCE ON SUPPLEMENTAL OXYGEN Assessment/Plan IMP ACUTE ON CHRONIC HYPOXEMIC RESPIRATORY FAILURE ADVANCED COPD WITH ACUTE EXACERBATION CHF HTN H/O CVA + TROPONIN PLAN CHANGE TO PREDNISONE INHALED BRONCHODILATORS ABX LASIX ZITHROMAX 25Omg PO TIW O2 TO MAINTAIN O2 SAT 90% 0R [facility] DR DELONG
[2019-02-16] MEDS: predniSONE 20 MG TABLET (UD) PO SCH (16:04)
[2019-02-16] MEDS: ATORVASTATIN CA 80 MG TABLET (FP) PO SCH (21:17)
[2019-02-16] MEDS: LATANOPROST 0.005% OPHTH SOLN 2.5ML BOTTLE OU SCH (21:25)
[2019-02-16] MEDS: MELATONIN 5 MG TABLETS PO PRN ×2 (21:25→21:59)
[2019-02-17] MEDS: HEPARIN NA (PORCINE) 5,000 UNITS/ML 1ML VIAL SQ SCH ×2 (06:07→14:29)
[2019-02-17 08:18] LABS: HEMATOCRIT 48.6 % (32.4-45.2); HEMOGLOBIN 15.7 GM/dl (10.7-15.3); MCH 32.2 pg (25.7-33.7); MCHC 32.2 g/dl (32.0-36.0); MEAN CELL VOLUME 99.9 fl (80-96); MEAN PLT VOLUME 8.9 fl (7.5-11.1); PLATELET COUNT 252 K/MM3 (134-434); RBC 4.86 M/mm3 (3.60-5.2); RDW 14.2 % (11.6-15.6); WHITE BLOOD COUNT 10.5 K/mm3 (4.0-10.8)
--- NOTE | 2019-02-17 08:27 | DS ---
Physical Exam: SUBJECTIVE: Patient seen and examined OBJECTIVE: Vital Signs Period Temp Pulse Resp BP Sys/Frost Pulse Ox Last 24 Hr 97.5 F-98.1 F 92-115 19-20 101-128/40-82 85-92 PHYSICAL EXAM GENERAL: The patient is awake, alert, and fully oriented, in no acute distress. HEAD: Normal with no signs of trauma. EYES: PERRL, extraocular movements intact, sclera anicteric, conjunctiva clear. ENT: Ears normal, nares patent, oropharynx clear without exudates, moist mucous membranes. NECK: Trachea midline, full range of motion, supple. LUNGS: Breath sounds equal, clear to auscultation bilaterally, no wheezes, no crackles, no accessory muscle use. HEART: Regular rate and rhythm, S1, S2 without murmur, rub or gallop. ABDOMEN: Soft, nontender, nondistended, normoactive bowel sounds, no guarding, no rebound, no hepatosplenomegaly, no masses. EXTREMITIES: 2+ pulses, warm, well-perfused, no edema. NEUROLOGICAL: Cranial nerves II through XII grossly intact. Normal speech, gait not observed. PSYCH: Normal mood, normal affect. SKIN: Warm, dry, normal turgor, no rashes or lesions noted. LABS Laboratory Results - last 24 hr 02/16/19 02/16/19 02/16/19 10:20 10:20 12:00 WBC 11.9 H RBC 5.12 Hgb 16.1 H Hct 50.7 H MCV 99.0 H MCH 31.5 MCHC 31.8 L RDW 14.3 Plt Count 277 MPV 8.9 Absolute Neuts (auto) 9.8 Neutrophils % 83.3 H Lymphocytes % 13.1 Monocytes % 3.1 L Eosinophils % 0.0 Basophils % 0.5 Sodium Cancelled 141 Potassium Cancelled 4.3 Chloride Cancelled 98 Carbon Dioxide Cancelled 29 Anion Gap Cancelled 14 BUN Cancelled 31.0 H Creatinine Cancelled 1.0 Est GFR (CKD-EPI)AfAm Cancelled 63.38 Est GFR (CKD-EPI)NonAf Cancelled 54.68 Random Glucose Cancelled 115 H Calcium Cancelled 9.8 02/17/19 07:04 WBC 10.5 RBC 4.86 Hgb 15.7 H Hct 48.6 H MCV 99.9 H MCH 32.2 MCHC 32.2 RDW 14.2 Plt Count 252 MPV 8.9 Absolute Neuts (auto) Neutrophils % Lymphocytes % Monocytes % Eosinophils % Basophils % Sodium Potassium Chloride Carbon Dioxide Anion Gap BUN Creatinine Est GFR (CKD-EPI)AfAm Est GFR (CKD-EPI)NonAf Random Glucose Calcium HOSPITAL COURSE: Date of Admission:02/12/19 Date of Discharge: 02/17/19 Minutes to complete discharge: 35 Discharge Summary Reason For Visit: sob Current Active Problems CHF (congestive heart failure) (Acute) COPD exacerbation (Acute) Troponin I above reference range (Acute) Condition: Stable - Instructions Referrals: Avery Mccormick MD [Primary Care Provider] - Disposition: HOME - Home Medications Comprehensive Discharge Medication List: Ambulatory Orders Albuterol 0.083% Nebulizer Nan [Ventolin 0.083% Nebulizer Soln -] 1 amp NEB Q4H PRN #0 amp 12/28/15 Aspirin Coated [Ecotrin -] 81 mg PO DAILY #0 tablet.ec 12/28/15 Dorzolamide HCl [Trusopt 2% -] 1 drop OU BID #0 drops 12/28/15 Latanoprost 0.005% Eye Drops [Xalatan 0.005% Eye Drops -] 1 drop OU HS #0 drops 12/28/15 Atorvastatin Ca [Lipitor] 80 mg PO HS 02/12/19 Jamir/D3/Mag11/Zinc/[employer] Sales Engineer/Fortino/Bor [Caltrate 600+D Plus Tablet] 1 each PO DAILY Furosemide [Lasix] 40 mg PO BID 02/12/19 L.acidoph,Paracasei, B.lactis [Probiotic] 1 each PO DAILY 02/12/19 Magnesium 250 mg PO DAILY 02/12/19 Potassium Chloride 20 meq PO DAILY 02/12/19 Prednisone [Deltasone] 20 mg PO ASDIR #21 tablet 02/17/19 This patient is new to me today: No Emergency Visit: Yes ED Registration Date: 02/12/19 Care time: The patient presented to the Emergency Department on the above date and was hospitalized for further evaluation of their emergent condition. Critical Care patient: No - Discharge Referral Referred to [facility] Med P.C.: No
[2019-02-17 09:24] LABS: CALCIUM 9.3 mg/dl (8.5-10); POTASSIUM 3.7 mmol/L (3.5-5.1)
[2019-02-17] MEDS: DOXYCYCLINE HYCLATE 100 MG CAPSULE PO SCH (09:50)
[2019-02-17] MEDS: NIFEdipine E.R 60 MG TABLET (UD) PO SCH (09:51)
[2019-02-17] MEDS: predniSONE 20 MG TABLET (UD) PO SCH (09:51)
[2019-02-17] MEDS: ASPIRIN COATED 81 MG TABLET.EC PO SCH (09:51)
[2019-02-17] MEDS: ESCITALOPRAM OXALATE 10 MG TABLET (FP) PO SCH (09:53)
[2019-02-17] MEDS: DORZOLAMIDE 2% HCL OPHTHALMIC SOLUTION 10 ML BOTTLE OU SCH (09:53)
[2019-02-17] MEDS: TIOTROPIUM BROMIDE 2.5 MCG (SPIRIVA) RESPIMAT INHALER IH SCH (09:53)
[2019-02-17] MEDS: FUROSEMIDE 40 MG/4 ML INJECTABLE VIAL IVPUSH SCH (09:53)
[2019-02-17] MEDS: BUDESONIDE/FORMETEROL FUMARATE 160/4.5 mcg INHALER IH SCH (09:53)
[2019-02-17] MEDS: CEFTRIAXONE 1 G/50 ML PREMIX 50 ML IVPB SCH (09:54)
[2019-02-17] MEDS: ACETAMINOPHEN 325 MG TABLET (FP) PO PRN (12:07)
--- NOTE | 2019-02-17 14:07 | PN ---
Progress Note (short form) - Note Progress Note: s: no chest pain, palps, dizziness tele: sinus Current Medications Acetaminophen (Tylenol -) 650 mg PO Q6H PRN PRN Reason: PAIN LEVEL 1-5 Last Admin: 02/17/19 12:07 Dose: 650 mg Albuterol Sulfate (Ventolin 0.083% Nebulizer Soln -) 1 amp NEB Q4H PRN PRN Reason: SHORT OF BREATH/WHEEZING Last Admin: 02/14/19 15:28 Dose: 1 amp Aspirin (Ecotrin -) 81 mg PO DAILY [facility] Last Admin: 02/17/19 09:51 Dose: 81 mg Atorvastatin Calcium (Lipitor -) 80 mg PO HS [facility] Last Admin: 02/16/19 21:17 Dose: 80 mg Budesonide/Formoterol Fumarate (Symbicort 160/4.5mcg -) 2 puff IH BID [facility] Last Admin: 02/17/19 09:53 Dose: 2 puff Dorzolamide HCl (Trusopt 2%) 1 drop OU BID@1000,1800 [facility] Last Admin: 02/17/19 09:53 Dose: 1 drop Doxycycline Hyclate (Vibramycin -) 100 mg PO BID@1000,1800 [facility] Last Admin: 02/17/19 09:50 Dose: 100 mg Escitalopram Oxalate (Lexapro -) 10 mg PO DAILY [facility] Last Admin: 02/17/19 09:53 Dose: 10 mg Furosemide (Lasix Injection -) 40 mg IVPUSH DAILY [facility] Last Admin: 02/17/19 09:53 Dose: 40 mg Heparin Sodium (Porcine) (Heparin -) 5,000 unit SQ TID [facility] Last Admin: 02/17/19 06:07 Dose: 5,000 unit Ceftriaxone Sodium (Ceftriaxone 1 Gm-D5w Bag) 50 mls @ 100 mls/hr IVPB DAILY [facility]; Protocol Last Admin: 02/17/19 09:54 Dose: 100 mls/hr Latanoprost (Xalatan 0.005% Eye Drops -) 1 drop OU HS [facility] Last Admin: 02/16/19 21:25 Dose: 1 drop Melatonin (Melatonin) 5 mg PO HS PRN PRN Reason: INSOMNIA Last Admin: 02/16/19 21:59 Dose: 5 mg Nifedipine (Procardia Xl -) 60 mg PO DAILY [facility] Last Admin: 02/17/19 09:51 Dose: 60 mg Prednisone (Deltasone -) 40 mg PO DAILY [facility] Last Admin: 02/17/19 09:51 Dose: 40 mg Tiotropium Bowman (Spiriva Respimat) 2 puff IH DAILY [facility] Last Admin: 02/17/19 09:53 Dose: 2 puff Vital Signs Period Temp Pulse Resp BP Sys/Frost Pulse Ox Last 24 Hr 97.5 F-98.1 F 92-115 19-20 109-128/60-76 85-92 Constitutional: Yes: No Distress Cardiovascular: Yes: Regular Rate and Rhythm, no JVD Respiratory: Yes: CTAB Gastrointestinal: Yes: Soft Edema: No Neurological: Yes: Alert no jaundice, diaphoresis not agitated - ....Imaging EKG: Image Reviewed Assessment/Plan EKG: sinus, nl intervals, no ischemic changes tele: sinus CXR: congestive changes echo 01/2019: nl lv, mod rve, nl rv fcn, mild-mod tr, mild pr, sev phtn 78 year-old female with a PMH significant for diastolic heart failure, carotid artery disease s/p endarterectomy, peripheral arterial disease s/p fem pop bypass, and COPD. Admitted for hypoxic respiratory failure. Acute on chronic diastolic HF: - pulm following, SOB likely also component of COPD - now off IV steroids, resp status at baseline - transition to PO lasix 40 mg BID - monitor daily weights, Cr, lytes Elevated trop: - flat trend, indeterminate range, EKG no ischemic changes - unlikely ACS, more likely demand in setting of HF COPD exac: - manage per pulm UTI - manage per primary, on abx PAD, carotid stenosis - cont aspirin, statin HTN - cont home meds Pulm htn: secondary to COPD, chronic diastolic CHF -cont tx of chf, copd. Would repeat echo as outpt when acute issues resolve to see if RVSP improves.
[2019-02-17 14:11] VITALS: BP 99/67; PULSE 100; TEMP 98
[2019-02-18] MEDS ORDERED: FUROSEMIDE 40 MG TABLET (FP) PO SCH (06:00)
== END 2019-02-17 16:33 | disposition home or self-care (01) | DRG 291 ==
LOC: FER 13:51 → FM/S 16:48
PROVIDERS: ADMIT Internal Medicine; ATTEND Nurse Practitioner Acute Care
DX: I11.0 Hypertensive heart disease with heart failure (principal); I50.33 Acute on chronic diastolic (congestive) heart failure; J96.21 Acute and chronic respiratory failure with hypoxia; J18.9 Pneumonia, unspecified organism; N39.0 Urinary tract infection, site not specified; J44.1 Chronic obstructive pulmonary disease with (acute) exacerbation; M48.52XA Collapsed vertebra, not elsewhere classified, cervical region, initial encounter for fracture; M48.56XA Collapsed vertebra, not elsewhere classified, lumbar region, initial encounter for fracture; M48.54XA Collapsed vertebra, not elsewhere classified, thoracic region, initial encounter for fracture; E78.5 Hyperlipidemia, unspecified; I25.10 Atherosclerotic heart disease of native coronary artery without angina pectoris; R00.0 Tachycardia, unspecified; E04.1 Nontoxic single thyroid nodule; R51 Headache; I27.20 Pulmonary hypertension, unspecified; M54.5 Low back pain; I65.29 Occlusion and stenosis of unspecified carotid artery; I73.9 Peripheral vascular disease, unspecified; R74.8 Abnormal levels of other serum enzymes; Z99.81 Dependence on supplemental oxygen; Z86.73 Personal history of transient ischemic attack (TIA), and cerebral infarction without residual deficits; Z87.891 Personal history of nicotine dependence
CPT/HCPCS: 36415; 71045-TC-FY; 71250-TC; 80048; 80053; 81003; 81015; 82550; 83735; 83880; 84443; 84484; 85025; 85027; 85610; 85730; 87040; 87086; 93005; 93306-TC; 94640; 97116-GP; 97161-GP; 99285-25; J1644